=== PATIENT | male | born 1945 | race Caucasian/White ===

== ENCOUNTER 2017-12-21 14:55 | Inpatient (IN) | payer OTHER, MEDICARE ==
[~2017-12-21] VITALS: Ht 165.1 cm; Wt 123.0 kg
[2017-12-21 15:31] VITALS: BP 147/81; PULSE 94; RESP 20; TEMP 98.5; O2SAT 98
--- NOTE | 2017-12-21 16:04 | RADRPT ---
EXAM DATE/TIME: 12/21/2017 15:46 [facility] COMPARISON: No previous studies available for comparison. INDICATIONS : Short of breath, weakness, for medical clearance for possible spinal cord compression MEDICAL HISTORY : None. SURGICAL HISTORY : None. ENCOUNTER: Initial ACUITY: 1 day PAIN SCORE: 0/10 LOCATION: Bilateral chest FINDINGS: PA and lateral views of the chest demonstrate the lungs to be symmetrically aerated without evidence of mass, infiltrate or effusion. The cardiomediastinal contours are unremarkable. Osseous structure s are intact. CONCLUSION: 1. No acute cardiopulmonary disease. Wilfrido Pacheco MD on December 21, 2017 at 16:01 Board Certified Radiologist. This report was verified electronically.
[2017-12-21 16:36] LABS: BASOPHIL % 0.5 % (0.0-2.0); EOSINOPHIL # 0.1 TH/MM3 (0-0.4); EOSINOPHIL % 1.2 % (0.0-4.0); HEMATOCRIT 43.2 % (39.0-51.0); HEMOGLOBIN 15.3 GM/DL (13.0-17.0); LYMPH % 10.1 % (9.0-44.0); LYMPHOCYTE # 0.9 TH/MM3 (1.0-4.8); MEAN CELL VOLUME 90.9 FL (80.0-100.0); MEAN CORPUSCULAR HEMOGLOBIN 32.2 PG (27.0-34.0); MEAN CORPUSCULAR HGB CONC 35.4 % (32.0-36.0); MEAN PLATELET VOLUME 6.7 FL (7.0-11.0); MONO % 7.7 % (0.0-8.0); MONOCYTE # 0.7 TH/MM3 (0-0.9); NEUT % 80.5 % (16.0-70.0); PLATELET COUNT 130 TH/MM3 (150-450); RED BLOOD COUNT 4.76 MIL/MM3 (4.50-5.90); WHITE BLOOD COUNT 8.6 TH/MM3 (4.0-11.0)
[2017-12-21 16:50] LABS: INTERNATIONAL NORMALIZED RATIO 1.1 RATIO; PROTHROMBIN TIME - PATIENT 11.1 SEC (9.8-11.6)
[2017-12-21 16:55] LABS: ALBUMIN 3.9 GM/DL (3.4-5.0); ALT (GPT) 28 U/L (12-78); AST (GOT) 17 U/L (15-37); BICARBONATE 29.8 MEQ/L (21.0-32.0); BLOOD UREA NITROGEN 16 MG/DL (7-18); CALCIUM 8.7 MG/DL (8.5-10.1); CHLORIDE 105 MEQ/L (98-107); GLOMERULAR FILTRATION RATE 83 ML/MIN (>89); GLUCOSE,RANDOM 108 MG/DL (74-106); SODIUM (NA) 142 MEQ/L (136-145)
[2017-12-21 16:57] LABS: ALKALINE PHOSPHATASE 58 U/L (45-117); TOTAL BILIRUBIN ADULT 1.3 MG/DL (0.2-1.0); TOTAL PROTEIN 7.1 GM/DL (6.4-8.2)
[2017-12-21] MEDS ORDERED: ASPI1TAB57 PO (17:00)
[2017-12-21] MEDS ORDERED: IBUP1TAB7 PO (17:00)
[2017-12-21] MEDS ORDERED: HYDR-3516 PO (17:00)
[2017-12-21] MEDS ORDERED: METO1TAB42 PO (17:00)
[2017-12-21] MEDS ORDERED: SIMV40TA PO (17:00)
[2017-12-21] MEDS ORDERED: TAMS0.4C4 (17:00)
[2017-12-21] MEDS ORDERED: DEXA4TAB PO (17:00)
[2017-12-21] MEDS ORDERED: LISI-515 PO (17:00)
[2017-12-21 17:07] VITALS: BP 157/80; PULSE 98; RESP 17; O2SAT 94
--- NOTE | 2017-12-21 17:09 | PD ---
HPI Chief Complaint: Medical Clearance Time Seen by Provider: 16:49 Travel History International Travel<30 days: No Contact w/Intl Traveler<30days: No Traveled to known affect area: No History of Present Illness HPI 72-year-old male presents to the emergency department sent by oncologist, Dr. El Casillas for evaluation of a mass to his cervical spine. Patient states that for several months, he has had worsening unsteady gait, numbness and tingling to the bilateral upper extremities and inability to completely extend his fingers on his left hand. He states his s gait has become more more unsteady. He denies any falls. Patient has history of hypertension, A. fib. He saw Dr. Hicks today who put him on dexamethasone and hydrocodone for pain. He last took these at 2:30 PM. Patient states that Dr. Hicks contacted Dr. Skinner, who instructed the patient to come to the emergency department. The patient states he had MRI completed on December 14, 2017 at [facility]. Patient states his pain is currently minimal, radiating down both arms. Moderate severity. PFSH Past Medical History Atrial Fibrillation: Yes Cardiovascular Problems: Yes High Cholesterol: Yes Hypertension: Yes Tetanus Vaccination: Unknown Influenza Vaccination: Yes Past Surgical History Thoracic Surgery: Yes (LOWER BACK) Social History Alcohol Use: No Tobacco Use: No Substance Use: No Allergies-Medications (Allergen,Severity, Reaction): Coded Allergies: No Known Allergies (Unverified , 12/21/17) Reported Meds & Prescriptions Reported Meds & Active Scripts Active Reported Aspirin 81 (Aspirin) 81 Mg Tabdr 81 Mg PO DAILY Ibuprofen 800 Mg Tab 800 Mg PO Q8H PRN Tamsulosin (Tamsulosin HCl) 0.4 Mg Cap 0.4 Mg HS Simvastatin 40 Mg Tab 40 Mg PO HS Metoprolol Succinate ER 24 HR (Metoprolol Succinate) 25 Mg Tab 25 Mg PO DAILY Lisinopril 20 Mg Tab 20 Mg PO DAILY Dexamethasone 4 Mg Tab 4 Mg PO Q8HR Hydrocodone-Acetaminophen 5-325 mg Tab 1 Tab PO Q8HR PRN Review of Systems Except as stated in HPI: all other systems reviewed are Neg Physical Exam Narrative GENERAL: Well-developed well nourished male patient. Afebrile. SKIN: Warm and dry. HEAD: Normocephalic. Atraumatic. EYES: No scleral icterus. No injection or drainage. NECK: Supple, trachea midline. No JVD or lymphadenopathy. CARDIOVASCULAR: Regular rate and rhythm without murmurs, gallops, or rubs. RESPIRATORY: Breath sounds equal bilaterally. No accessory muscle use. Lung sounds are clear to auscultation GASTROINTESTINAL: Abdomen soft, non-tender, nondistended. MUSCULOSKELETAL: No cyanosis, or edema. Bilateral upper and lower extremity strength 5/5 BACK: Nontender without obvious deformity. No CVA tenderness. Data Data Last Documented VS Vital Signs Date Time Temp Pulse Resp B/P (MAP) Pulse Ox O2 Delivery O2 Flow Rate FiO2 12/21/17 17:07 98 17 157/80 (105) 94 Room Air 12/21/17 15:31 98.5 Orders Orders Complete Blood Count With Diff (12/21/17 15:35) Comprehensive Metabolic Panel (12/21/17 15:35) Chest, Pa & Lat (12/21/17 ) Coag Profile (12/21/17 15:35) Apply Cervical Collar (12/21/17 17:20) Dexamethasone Inj (Decadron Inj) (12/21/17 17:30) Ct Cerv Spine W/O Contrast (12/21/17 ) Cta Neck W Iv Contrast W 3d (12/21/17 ) Psa Free/Total (12/21/17 17:31) Prostate Specific Antigen (12/21/17 17:31) Ct Thorax/ Chest W Iv Contrast (12/21/17 ) Ct Abdomen W Iv Contrast(Rout) (12/21/17 ) Consult Radiation Oncology (12/21/17 ) Admit Order (Ed Use Only) (12/21/17 17:35) Labs Laboratory Tests Test 12/21/17 16:10 White Blood Count 8.6 TH/MM3 Red Blood Count 4.76 MIL/MM3 Hemoglobin 15.3 GM/DL Hematocrit 43.2 % Mean Corpuscular Volume 90.9 FL Mean Corpuscular Hemoglobin 32.2 PG Mean Corpuscular Hemoglobin Concent 35.4 % Red Cell Distribution Width 15.0 % Platelet Count 130 TH/MM3 Mean Platelet Volume 6.7 FL Neutrophils (%) (Auto) 80.5 % Lymphocytes (%) (Auto) 10.1 % Monocytes (%) (Auto) 7.7 % Eosinophils (%) (Auto) 1.2 % Basophils (%) (Auto) 0.5 % Neutrophils # (Auto) 7.0 TH/MM3 Lymphocytes # (Auto) 0.9 TH/MM3 Monocytes # (Auto) 0.7 TH/MM3 Eosinophils # (Auto) 0.1 TH/MM3 Basophils # (Auto) 0.0 TH/MM3 CBC Comment DIFF FINAL Differential Comment Prothrombin Time 11.1 SEC Prothromb Time International Ratio 1.1 RATIO Activated Partial Thromboplast Time 25.0 SEC Blood Urea Nitrogen 16 MG/DL Creatinine 0.90 MG/DL Random Glucose 108 MG/DL Total Protein 7.1 GM/DL Albumin 3.9 GM/DL Calcium Level 8.7 MG/DL Alkaline Phosphatase 58 U/L Aspartate Amino Transf (AST/SGOT) 17 U/L Alanine Aminotransferase (ALT/SGPT) 28 U/L Total Bilirubin 1.3 MG/DL Sodium Level 142 MEQ/L Potassium Level 3.6 MEQ/L Chloride Level 105 MEQ/L Carbon Dioxide Level 29.8 MEQ/L Anion Gap 7 MEQ/L Estimat Glomerular Filtration Rate 83 ML/MIN MDM Medical Decision Making Medical Screen Exam Complete: Yes Emergency Medical Condition: Yes Medical Record Reviewed: Yes Differential Diagnosis Mass versus metastatic disease versus medical clearance Narrative Course 72-year-old male presents to the emergency department for evaluation of a soft tissue mass on his cervical spine. I was able to pull up the MRI that was done. The results were soft tissue mass centered in the posterior elements of C7 with extension into the spinal canal from the dorsal and lateral aspect resulting in moderate cord compression. Findings are concerning for metastatic disease given history of prostate cancer. CBC shows no acute abnormality. CMP shows no acute abnormality. Coags are unremarkable. Chest x-ray shows no acute cardiopulmonary disease. 1710 - I spoke to Dr. Skinner who would like the patient admitted, the patient get Decadron 4 mg every 6 hours and a consult placed to Dr. Skinner. He states he will come see the patient. He would like the patient to have a cervical collar placed. 1720 - Dr. Skinner is in the ED, examining the patient. Hospitalist is paged for admission. Dr. Newell accepted admission. Diagnosis Primary Impression: Cervical spinal mass Admitting Information Admitting Physician Requests: Admit Amy Lua DEDRICK Dec 21, 2017 17:09
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
[2017-12-21] MEDS ORDERED: DEXAMETHASONE SOD PHOS 4 MG/ML VIAL IV PUSH ONE (17:30)
[2017-12-21] MEDS ORDERED: DIATRIZOATE MEGLUM/DIATRIZOATE SOD 9 ML CUP ONE (18:03)
[2017-12-21] MEDS ORDERED: NALOXONE HCL 0.4 MG/ML AMP IV PUSH PRN (18:30)
[2017-12-21] MEDS ORDERED: ONDANSETRON HCL 4 MG/2 ML VIAL IVP PRN (18:30)
[2017-12-21] MEDS ORDERED: ACETAMINOPHEN 325 MG TAB PO PRN (18:30)
[2017-12-21] MEDS ORDERED: BISACODYL 10 MG SUPP RECTAL PRN (18:30)
[2017-12-21] MEDS ORDERED: LACTULOSE SYRUP 20 GM/30 ML CUP PO PRN (18:30)
[2017-12-21] MEDS ORDERED: SENNOSIDES 8.6 MG TAB PO PRN (18:30)
[2017-12-21] MEDS ORDERED: MAGNESIUM HYDROXIDE SUSP 30 ML CUP PO PRN (18:30)
[2017-12-21] MEDS ORDERED: IOHEXOL 350 MG/ML 10 ML VIAL (for RAD DIAG) IVCONTRAST ONE (20:02)
--- NOTE | 2017-12-21 20:16 | RADRPT ---
EXAM DATE/TIME: 12/21/2017 19:29 [facility] COMPARISON: No previous studies available for comparison. INDICATIONS : Metastatic workup, history of prostate cancer. IV CONTRAST: 95 cc Omnipaque 350 (iohexol) IV ; Cumulative dose for multiple exams. ORAL CONTRAST: Prescribed oral contrast ingested. RADIATION DOSE: 16.38 CTDIvol (mGy) ; Combined studies - Thorax/Abdomen/Pelvis MEDICAL HISTORY : Carcinoma, prostate. Hypertension. Cardiovascular disease SURGICAL HISTORY : None. ENCOUNTER: Initial ACUITY: 1 day PAIN SCALE: 0/10 LOCATION: abdomen/pelvis TECHNIQUE: Volumetric scanning of the abdomen and pelvis was performed. Using automated exposure control and ad justment of the mA and/or kV according to patient size, radiation dose was kept as low as reasonably achievable to obtain optimal diagnostic quality images. DICOM format image data is available electro nically for review and comparison. FINDINGS: There is dependent atelectasis in the lungs. No significant abnormality in the liver, spleen, adrenal s or pancreas. Bilateral exophytic renal cysts and right renal parapelvic cysts measuring up to about 3.5 cm in diameter. There is no free fluid. No bowel obstruction. No adenopathy. CONCLUSION: 1. No acute findings abdomen pelvic CT. No evidence for metastatic disease to the abdomen or pelvis. Bilateral renal cysts. Previous cholecystectomy. Jaspreet Ramirez MD on December 21, 2017 at 20:11 Board Certified Radiologist. This report was verified electronically.
--- NOTE | 2017-12-21 20:19 | RADRPT ---
EXAM DATE/TIME: 12/21/2017 19:29 [facility] COMPARISON: No previous studies available for comparison. INDICATIONS : Metastatic workup, history of prostate cancer. IV CONTRAST: 95 cc Omnipaque 350 (iohexol) IV ; Cumulative dose for multiple exams. RADIATION DOSE: 16.38 CTDIvol (mGy) ; Combined studies - Thorax/Abdomen/Pelvis MEDICAL HISTORY : Carcinoma, prostate. Hypertension. Cardiovascular disease SURGICAL HISTORY : None. ENCOUNTER: Initial ACUITY: 1 day PAIN SCALE: 0/10 LOCATION: chest TECHNIQUE: Volumetric scanning of the chest was performed. Using automated exposure control and adjustment of t he mA and/or kV according to patient size, radiation dose was kept as low as reasonably achievable to obtain optimal diagnostic quality images. DICOM format image data is available electronically for review and comparison. Follow-up recommendations for detected pulmonary nodules are based at a minimum on nodule size and pa tient risk factors according to Fleischner Society Guidelines. FINDINGS: No lung consolidation. Minimal dependent atelectasis in lungs. There is no pleural pericardial effusi on. Moderate to severe coronary artery calcifications are noted. No hilar, mediastinal or axillary ad enopathy. No acute findings in the upper abdomen. Calcified gallstones in the gallbladder. No acute bony abnorm ality. CONCLUSION: 1. Negative for metastatic disease to the thorax. Jaspreet Ramirez MD on December 21, 2017 at 20:14 Board Certified Radiologist. This report was verified electronically.
--- NOTE | 2017-12-21 20:44 | RADRPT ---
EXAM DATE/TIME: 12/21/2017 19:29 [facility] COMPARISON: CT THORAX W CONTRAST, December 21, 2017, 19:29. INDICATIONS : Mass verses metastatic disease. RADIATION DOSE: CTDIvol (mGy) ; Reconstructed from previous dataset, no dose MEDICAL HISTORY : Carcinoma, prostate. Cardiovascular disease Hypertension. SURGICAL HISTORY : None. ENCOUNTER: Initial ACUITY: 1 day PAIN SCALE: 4/10 LOCATION: neck TECHNIQUE: Volumetric scanning of the cervical spine was performed. Multiplanar reconstructions in the sagittal, coronal and oblique axial planes were performed. Using automated exposure control and adjustment o f the mA and/or kV according to patient size, radiation dose was kept as low as reasonably achievable to obtain optimal diagnostic quality images. DICOM format image data is available electronically f or review and comparison. FINDINGS: There is lytic destruction of the proximal spinous process of C7 and left pedicle and partial destruc tion of the right pedicle. There is some extension of bone lysis into the C7 vertebral body on the le ft side. The mass of C7 also results in bony destruction through the superior facet and a portion of the left pedicle at T1 and also portions superior facet on the right at T1. There is associated soft tissue mass resulting in a severe canal stenosis at C6-7. No other bony destructive lesions are seen in the cervical spine. No other significant canal stenosis . CONCLUSION: 1. Aggressive bony destruction of C7 extending bilaterally into the pedicles and vertebral body and a lso extending inferiorly into the superior facet and pedicle of T1. Soft tissue mass extends in into the spinal canal and there is severe canal stenosis at C6-7. Moderate degenerative change in remainde r the cervical spine. Findings are suspicious for neoplasm, likely metastatic disease. Jaspreet Ramirez MD on December 21, 2017 at 20:35 Board Certified Radiologist. This report was verified electronically.
--- NOTE | 2017-12-21 20:48 | RADRPT ---
EXAM DATE/TIME: 12/21/2017 19:29 [facility] COMPARISON: No previous studies available for comparison. INDICATIONS : Metastatic workup, history of prostate cancer. IV CONTRAST: 95 cc Omnipaque 350 (iohexol) IV RADIATION DOSE: 11.79 CTDIvol (mGy) MEDICAL HISTORY : Carcinoma, prostate. Hypertension. Cardiovascular disease SURGICAL HISTORY : None. ENCOUNTER: Initial ACUITY: 1 day PAIN SCALE: 3/10 LOCATION: neck Elevated flow velocities and ICA/CCA ratios have been found to correlate with increased degrees of vessel stenosis, calculated as percentage of diameter relative to a normal segment of distal ICA/CCA. TECHNIQUE: Volumetric scanning was performed using a multirow detector CT scanner. The data was post processed with a variety of visualization algorithms including full-volume maximum intensity projection, multip lanar sliding thin-slab reformation, curved-planar reformation, and surface-rendering techniques. Us ing automated exposure control and adjustment of the mA and/or kV according to patient size, radiatio n dose was kept as low as reasonably achievable to obtain optimal diagnostic quality images. DICOM f ormat image data is available electronically for review and comparison. FINDINGS: There is mild atherosclerotic plaque in the common carotid internal carotid arteries bilaterally. No hemodynamically significant stenosis. Both vertebral arteries are patent with the left vertebral nathaniel ry dominance. CONCLUSION: 1. Mild atherosclerotic plaque in the carotid arteries without carotid stenosis. Bony destruction at C7 and T1. See cervical spine report. Jaspreet Ramirez MD on December 21, 2017 at 20:43 Board Certified Radiologist. This report was verified electronically.
[2017-12-21] MEDS: SODIUM CHLOR 0.9% 1000 ML INJ 1,000 ML IV SCH (21:40)
[2017-12-21 22:30] VITALS: BP 117/75; PULSE 100; RESP 18; TEMP 98.2; O2SAT 93
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
[2017-12-22] VITALS (10 sets, daily range): BP systolic 131–172; BP diastolic 70–92; PULSE 88–118; RESP 18–20; TEMP 97.3–98.3; O2SAT 93–96
[2017-12-22] MEDS: DEXAMETHASONE SOD PHOS 4 MG/ML VIAL IV PUSH SCH ×5 (00:16→23:12)
[2017-12-22] MEDS: METOPROLOL SUCCINATE 25 MG EXTENDED RELEASE TAB PO SCH ×2 (00:54→23:09)
[2017-12-22] MEDS: DOCUSATE SODIUM 50 MG/SENNA 8.6 MG TAB PO SCH ×3 (00:54→23:09)
[2017-12-22] MEDS: PRAVASTATIN SOD 80 MG TAB PO SCH ×2 (00:54→23:09)
[2017-12-22] MEDS: TAMSULOSIN HCL 0.4 MG CAP PO SCH ×3 (00:55→23:09)
[2017-12-22 05:32] LABS: AUTOMATED NEUTROPHIL # 9.4 TH/MM3 (1.8-7.7); BASOPHIL % 0.1 % (0.0-2.0); HEMATOCRIT 42.6 % (39.0-51.0); HEMOGLOBIN 15.3 GM/DL (13.0-17.0); LYMPHOCYTE # 0.6 TH/MM3 (1.0-4.8); MEAN CELL VOLUME 90.6 FL (80.0-100.0); MEAN CORPUSCULAR HEMOGLOBIN 32.5 PG (27.0-34.0); MEAN CORPUSCULAR HGB CONC 35.8 % (32.0-36.0); MEAN PLATELET VOLUME 6.8 FL (7.0-11.0); MONO % 0.8 % (0.0-8.0); MONOCYTE # 0.1 TH/MM3 (0-0.9); NEUT % 93.1 % (16.0-70.0); PLATELET COUNT 135 TH/MM3 (150-450); RED BLOOD COUNT 4.71 MIL/MM3 (4.50-5.90); RED CELL DISTRIBUTION WIDTH 15.1 % (11.6-17.2); WHITE BLOOD COUNT 10.1 TH/MM3 (4.0-11.0)
[2017-12-22 05:54] LABS: BICARBONATE 26.4 MEQ/L (21.0-32.0); CALCIUM 8.5 MG/DL (8.5-10.1); CREATININE 0.64 MG/DL (0.60-1.30)
[2017-12-22] MEDS: LISINOPRIL 20 MG TAB PO SCH (08:57)
[2017-12-22] MEDS ORDERED: METOPROLOL SUCCINATE 25 MG EXTENDED RELEASE TAB PO SCH (09:00)
--- NOTE | 2017-12-22 10:51 | MB ---
cc: Fly Mckinnon MD, DATE OF CONSULT: 12/21/2017 HISTORY OF PRESENT ILLNESS: This is a 72-year-old gentleman who gives a history of being treated for prostate cancer under Dr. Suarez's care at [facility] approximately 2 years ago. He, however, has not had a PSA performed in at least a year. Over the past 2-3 months, this gentleman has had pain radiating down both arms, worse on the left than the right. This has been associated with numbness in his hands and weakness, particularly in his left hand. He has very weak grasp on the left, although he is able to use the right. In the past week, he has become unstable on his feet. He is having difficulty ambulating. On the 12th of this month, he had an MRI of his cervical spine which showed a large mass at C6-C7. This is affecting the posterior elements and causing an apparent cord compression. This gentleman was seen by Dr. Casillas today in consultation. He referred him to the emergency room. Since being in the emergency room, he has been started on Decadron. He has also seen Dr. Alan, who has talked to him about surgery, possibly on Thursday morning and has ordered a metastatic workup, which includes a CTA of the neck. He has also ordered a CT of the chest, CT of the abdomen and pelvis. These have not yet been completed. He has had a chest x-ray which is otherwise unremarkable. His white count was 8600, hemoglobin 15.3, and platelet count was 130,000. His GFR is estimated at 83, with a normal BUN and creatinine. His alkaline phosphatase is normal at 58. PAST MEDICAL AND SURGICAL HISTORY INCLUDES: 1. History of atrial fibrillation. 2. Hypercholesterolemia. 3. Hypertension. 4. Surgery and pinning for a fractured left leg. 5. Low back surgeries 30 years ago. 6. Prostate cancer treated with radiation treatment approximately 2 years ago, as noted above. This gentleman denies diabetes. SOCIAL AND FAMILY HISTORY: This gentleman is accompanied by his son. He has 4 children. He lives with one of his sons, who is with him today. Unfortunately, his is . ALLERGIES: NONE KNOWN. MEDICATIONS: Have included aspirin, ibuprofen, tamsulosin, simvastatin, metoprolol, lisinopril and now dexamethasone and hydrocodone/acetaminophen. REVIEW OF SYSTEMS: This gentleman has the pain and the numbness and weakness as indicated above. He denies other cardiovascular, respiratory, eye, ear, nose or throat GI, , musculoskeletal, hematologic, neurologic, endocrine or other complaints. PHYSICAL EXAMINATION: GENERAL: Today, on exam, this gentleman is resting comfortably in bed, in no immediate distress. VITAL SIGNS: He was noted to be afebrile with respiratory rate of 17, a blood pressure of 157/80 and a pulse oximetry of 94% on room air. There was no jaundice. HEENT: His conjunctivae and eyelids were normal. NEUROLOGIC: Cranial nerve testing 2-12 was normal. LYMPHATIC: There is no adenopathy palpable in his head or neck. PULMONARY: His lung ty were clear without effusion. CARDIOVASCULAR: His heart sounds were normal, without murmurs, rubs or bruits. ABDOMEN: There are no abdominal masses, tenderness or hepatosplenomegaly. MUSCULOSKELETAL: His grasp is weak in his left hand. His proximal muscles, shoulder girdle muscles appear intact. His plantar flexion and dorsiflexion are normal. The remainder of the neurological exam, we leave to Dr. Alan. IMPRESSION: I reviewed this gentleman's MRI on the monitor from [facility]. He has a definite tumor at the C6-C7 level, which is extending outside of the bone as a major portion of the disease, but is also significantly affecting the posterior elements and causing a cord compression at this level. RECOMMENDATIONS AND DISCUSSION: I have reviewed the findings with this gentleman and his son, who was present. I have told him that I believe this gentleman needs a neurosurgical approach for diagnosis, but as well as decompression of the spinal canal. He will require postoperative radiation treatment and I have discussed delivering approximately 10 fractions for this as soon as he is adequately recovered from the surgery. If this is indeed metastatic prostate cancer, then he will be a candidate for hormonal therapy and Dr. Casillas will be in a position to coordinate that for him. We will continue to follow with him while he is in the hospital. If there are any changes in his situation or if for some reason he is not considered a surgical candidate, we would initiate radiation treatment as soon as possible. MD FABY Drake/HARRIET , 08:51 PM , 01:31 AM
--- NOTE | 2017-12-22 11:59 | HHI.NSPN ---
Note Status Status: Progress Note Interval History Diagnosis mass, with cord compression Interval History Mr. Falk is a 72-year-old male who was sent to the emergency department by his oncologist Dr. Hicks for evaluation of a mass to his cervical spine. which was found on an outpatient MRI. neurosurgical consultation. Apparently he first developed his symptoms in September, with progressive left side and weakness and inability to close his left middle finger. The symptoms progressed into his left shoulder feeling painful. He was treated by his primary care physician's office for arthritis in his neck as was found on an x- ray of the cervical spine. He had physical therapy but his symptoms did not improve despite physical therapy. he was given pain medication. His symptoms eventually progressed to occurring bilaterally. He had an outpatient MRI which showed a large mass with spinal cord compression ,and was referred to an oncologist for further evaluation and treatment. He had his first appointment with Dr. Hicks today and was sent to the ER due to his neurological deficits MRI He reports neck pain with left upper extremity pain. He has developed problems walking with loss of balance and sumbling. his legs are getting weak. He denies any fever, chills, chest pain, shortness of breath, nausea, vomiting, diarrhea, black or bloody stools. Cervical spine MRI shows aggressive bony destruction of C7 extending bilaterally into the pedicles and vertebral body and also extending inferiorly into the superior facet and pedicle of T1. Soft tissue mass extending into the spinal canal with severe canal stenosis at C6-7. Neurosurgical consultation was requested. 12/22. He is very painful. Metastatic workup in progress. CT and CTA were done Labs, Micro, & Vital Signs Results Date Time Temp Pulse Resp B/P (MAP) Pulse Ox O2 Delivery O2 Flow Rate FiO2 12/22/17 08:32 98.3 93 18 158/73 (101) 95 12/22/17 06:27 103 12/22/17 04:50 98.1 93 18 131/81 (98) 95 12/22/17 00:15 97.7 100 20 172/92 (118) 96 12/21/17 22:30 98.2 100 18 117/75 (89) 93 12/21/17 22:11 12/21/17 17:07 98 17 157/80 (105) 94 Room Air 12/21/17 17:01 17 12/21/17 15:31 98.5 94 20 147/81 (103) 98 Constitutional Vital Signs Date Time Temp Pulse Resp B/P (MAP) Pulse Ox O2 Delivery O2 Flow Rate FiO2 12/22/17 08:32 98.3 93 18 158/73 (101) 95 12/22/17 06:27 103 12/22/17 04:50 98.1 93 18 131/81 (98) 95 12/22/17 00:15 97.7 100 20 172/92 (118) 96 12/21/17 22:30 98.2 100 18 117/75 (89) 93 12/21/17 22:11 12/21/17 17:07 98 17 157/80 (105) 94 Room Air 12/21/17 17:01 17 12/21/17 15:31 98.5 94 20 147/81 (103) 98 Physical Exam Mr. Lai is alert, awake and oriented to time, place and person. Speech is fluent. Cranial nerve examination: pupils to be equal, round and reactive to light. Extra-ocular movements are intact. Facial motor and sensory function are normal and symmetrical. Gross hearing appears intact. Sternocleidomastoid and trapezius muscles are symmetrical. Other cranial nerves are intact. Neck is soft and supple with a decreased range of motion with pain. Muscle strength is 5/5 in both deltoids, biceps, 4+/5 right triceps with 4/5 on the left, 3/5 left wrist extension and hand with decreased fine motor movementsis normal in all muscle groups of lower extremities. Sensory examination is decreased in a left C7 dermatome, otherwise intact to light touch and pin prick in both lower extremities. Deep tendon reflexes are symmetrical in both upper and lower extremities. There is a bilateral plantar flexion response. Cerebellar examination is unremarkable, without deficits. Lungs are clear CARDIOVASCULAR: Regular rate and rhythm without murmurs, gallops, or rubs. RESPIRATORY: Clear to auscultation. Breath sounds equal bilaterally. No wheezes , rales, or rhonchi. GASTROINTESTINAL: Abdomen soft, non-tender, nondistended. No guarding. SKIN warm and dry Medications Current Medications Current Medications Dexamethasone Sodium Phosphate (Decadron Inj) 4 mg ONCE ONCE IV PUSH Last administered on 12/21/17at 17:57; Start 12/21/17 at 17:30; Stop 12/21/17 at 17:31 ; Status DC Diatrizoate Meglum/ Diatrizoate Sod ( Gastroview Liq) 18 ml STK-MED ONCE .ROUTE Last administered on 12/21/17at 18:04; Start 12/21/17 at 18:03; Stop at 18:04; Status DC Sodium Chloride 1,000 ml @ 50 mls/hr Q20H IV Last administered on 12/21/17at 21 :40; Start 12/21/17 at 18:26 Acetaminophen (Tylenol) 650 mg Q4H PRN PO TEMP > 100.4; Start 12/21/17 at 18:30 Ondansetron HCl (Zofran Inj) 4 mg Q6H PRN IVP NAUSEA OR VOMITING; Start at 18:30 Naloxone HCl (Narcan Inj) 0.4 mg UNSCH PRN IV PUSH SEE LABEL COMMENTS; Start at 18:30 Senna/Docusate Sodium (Sangeeta-Colace) 1 tab BID PO ; Start 12/21/17 at 21:00 Magnesium Hydroxide (Milk Of Magnesia Liq) 30 ml Q12H PRN PO Mild constipation ; Start 12/21/17 at 18:30 Sennosides (Senokot) 17.2 mg Q12H PRN PO Moderate constipation; Start 12/21/17 at 18:30 Bisacodyl (Dulcolax Supp) 10 mg DAILY PRN RECTAL SEVERE CONSITIPATION; Start at 18:30 Lactulose (Lactulose Liq) 30 ml DAILY PRN PO SEVERE CONSITIPATION; Start at 18:30 Dexamethasone Sodium Phosphate (Decadron Inj) 4 mg Q6HR IV PUSH Last administered on 12/22/17at 05:59; Start 12/22/17 at 00:00 Iohexol (Omnipaque 350 Inj) 95 ml STK-MED ONCE IVCONTRAST Last administered on 12/21/17at 20:04; Start 12/21/17 at 20:02; Stop 12/21/17 at 20:03; Status DC Acetaminophen/ Hydrocodone Bitart ([place] 5-325 Mg) 1 tab Q4H PRN PO pain 3-6; Start 12/21/17 at 23:45 Acetaminophen/ Hydrocodone Bitart ([place] 10-325 Mg) 1 tab Q4H PRN PO pain 7-10 ; Start 12/21/17 at 23:45 Lisinopril (Prinivil) 20 mg DAILY PO Last administered on 12/22/17at 08:57; Start 12/22/17 at 09:00 Metoprolol Succinate (Toprol Xl) 25 mg DAILY PO ; Start 12/22/17 at 09:00; Stop 12/22/17 at 09:00; Status DC Tamsulosin HCl (Flomax) 0.4 mg HS PO ; Start 12/21/17 at 23:45 Pravastatin Sodium (Pravachol) 80 mg HS PO Last administered on 12/22/17at 00:54 ; Start 12/21/17 at 23:45 Metoprolol Succinate (Toprol Xl) 25 mg HS PO Last administered on 12/22/17at 00: 54; Start 12/22/17 at 00:30 Vancomycin HCl 1000 mg/Sodium Chloride 250 ml @ 250 mls/hr ONCE ONCE IV ; Start 12/23/17 at 06:00; Stop 12/23/17 at 06:59 Chlorhexidine Gluconate (Hibiclens 4% Top Soln) 1 applic HS TOP ; Start at 21:00; Stop 12/24/17 at 21:01 Attending Statement I reviewed his CT, CTA and CT chest, abdomen, and pelvis Last 48 hours Impressions Neck CTA 12/21/17 0000 Signed Impressions: Service Date/Time: Thursday, December 21, 2017 19:29 - CONCLUSION: 1. Mild atherosclerotic plaque in the carotid arteries without carotid stenosis. Bony destruction at C7 and T1. See cervical spine report. Jaspreet Ramirez MD Chest X-Ray 12/21/17 0000 Signed Impressions: Service Date/Time: Thursday, December 21, 2017 15:46 - CONCLUSION: 1. No acute cardiopulmonary disease. Wilfrido Pacheco MD Chest CT 12/21/17 0000 Signed Impressions: Service Date/Time: Thursday, December 21, 2017 19:29 - CONCLUSION: 1. Negative for metastatic disease to the thorax. Jaspreet Ramirez MD Cervical Spine CT 12/21/17 0000 Signed Impressions: Service Date/Time: Thursday, December 21, 2017 19:29 - CONCLUSION: 1. Aggressive bony destruction of C7 extending bilaterally into the pedicles and vertebral body and also extending inferiorly into the superior facet and pedicle of T1. Soft tissue mass extends in into the spinal canal and there is severe canal stenosis at C6-7. Moderate degenerative change in remainder the cervical spine. Findings are suspicious for neoplasm, likely metastatic disease. Jaspreet Ramirez MD Abdomen/Pelvis CT 12/21/17 0000 Signed Impressions: Service Date/Time: Thursday, December 21, 2017 19:29 - CONCLUSION: 1. No acute findings abdomen pelvic CT. No evidence for metastatic disease to the abdomen or pelvis. Bilateral renal cysts. Previous cholecystectomy. Jaspreet Ramirez MD Continue checks in serial fasion. There is a large spinal mass with cord compression. he will need extensive surgery for decompression and stabilization of the cervicothoracci spine. I again discussed with him the details including the [id number] details of the surgical procedure, its indications, alternatives, risks, and potential complications. Risks and potential complications include, but are not limited to, infection, blood loss, CSF leak, partial or complete loss of sight in one or both eyes, paresis, paralysis, permanent pain or difficulty swallowing, loss of bowel or bladder function, complications from anesthesia, blood clot, stroke, myocardial infarction, or even . Vertebral arteries are patent CT chest, abdomen, pelvis for metastatic workup were negative Following his surgery he will need radiation therapy Atrial fibrillation diagnosed 3 years ago pt not on anticoagulation Continue home metoprolol XL 25 mg daily with first dose tonight Continuous cardiac telemetry to monitor for arrhythmia Hypertension-Continue lisinopril. -Monitor blood pressure trends and adjust meds as needed Control pain with narcotis Hyperlipidemia Continue statins Pulmonary. aggressive pulmonary toilette, nasotracheal suction, and breathing treatments with nebulizers. Renal. monitor closely urine output, BUN and creatinine Type and cross 2UPRBC Endocrine. Monitor serial Acu checks and SSI as needed in detail ID monitor for signs of infection Protonix for stress ulcer prophylaxis Efraín hose and SCD's for DVT prophylaxis Bert Skinner MD Dec 22, 2017 11:59
[2017-12-22] MEDS ORDERED: CHLORHEXIDINE GLUCONATE 2 % 1 PACK (2 CLOTHS) TOPICAL PRN (12:45)
[2017-12-22] MEDS ORDERED: METOPROLOL TARTRATE 25 MG TAB PO PRN (12:45)
[2017-12-22] MEDS ORDERED: POVIDONE IODINE 5% (ANTISEPSIS KIT) 4 APPLICATIONS EACH NARE PRN (12:45)
[2017-12-22] MEDS ORDERED: SODIUM CHLORID 0.9% 500 ML IV PRN (12:45)
[2017-12-22] MEDS ORDERED: LACTATED RINGER'S 1000 ML IV PRN (12:45)
[2017-12-22] MEDS: SODIUM CHLOR 0.9% 1000 ML INJ 1,000 ML IV SCH (14:26)
--- NOTE | 2017-12-22 15:31 | HHI.PR ---
Subjective Remarks Mr. Falk is a very pleasant 72-year-old male who was sent to the emergency department by his oncologist Dr. Hicks for evaluation of a mass to his cervical spine that was found on an outpatient MRI. Patient is admitted to [facility] for general medical management of his other chronic medical conditions with neurosurgical consultation. The patient is seen in his hospital room. He states that he first developed his symptoms in September and it started with his left side and weakness and inability to close his left middle finger. The symptoms progressed into his left shoulder feeling painful. He was treated by his primary care physician's office for arthritis in his neck as was found on an x-ray of the cervical spine. He had physical therapy but his symptoms never got better despite physical therapy and pain medication. His symptoms eventually progressed to occurring bilaterally. He had an outpatient MRI and was referred to an oncologist for further evaluation and treatment. He states he had his first appointment with Dr. Hicks today and was sent to the ER by him after he reviewed his cervical spine MRI Currently he is reporting pain at a level 3 out of 10 and reports adequate pain relief with medication given to at the hospital. He is awaiting cervical collar placement at the time of my visit. He denies any fever, chills, chest pain, shortness of breath, nausea, vomiting, diarrhea, black or bloody stools. Cervical spine CT shows aggressive bony destruction of C7 extending bilaterally into the pedicles and vertebral body and also extending inferiorly into the superior facet and pedicle of T1. Soft tissue mass extending into the spinal canal with severe canal stenosis at C6-7. Moderate degenerative change noted in remainder of the cervical spine. Findings are suspicious for neoplasm, likely metastatic disease. The patient has been seen and evaluated by Dr. Skinner of neurosurgery. The patient states that Dr. Skinner told him he would do surgery and also refer him to radiation oncology. Dr. Skinner has consulted radiation oncology and we are leaving the patient n.p.o. for the time being until we have further clarification. 12-22 patient is scheduled to go for surgery tomorrow with Dr. Skinner Regarding Cervical mass No shortness of breath no chest pain no nausea vomiting Objective Vitals Vital Signs Date Time Temp Pulse Resp B/P (MAP) Pulse Ox O2 Delivery O2 Flow Rate FiO2 12/22/17 12:28 97.7 98 18 138/72 (94) 95 12/22/17 08:32 98.3 93 18 158/73 (101) 95 12/22/17 06:27 103 12/22/17 04:50 98.1 93 18 131/81 (98) 95 12/22/17 00:15 97.7 100 20 172/92 (118) 96 12/21/17 22:30 98.2 100 18 117/75 (89) 93 12/21/17 22:11 12/21/17 17:07 98 17 157/80 (105) 94 Room Air 12/21/17 17:01 17 12/21/17 15:31 98.5 94 20 147/81 (103) 98 I/O 12/21/17 12/21/17 12/21/17 12/22/17 12/22/17 12/22/17 07:00 15:00 23:00 07:00 15:00 23:00 Intake Total 0 ml Output Total 600 ml Balance -600 ml Intake Oral 0 ml Output Urine Total 600 ml # Bowel Movements 0 Result Diagram: 12/22/17 0500 12/22/17 0500 Other Results Laboratory Tests Test 12/21/17 16:10 12/22/17 05:00 White Blood Count 8.6 TH/MM3 10.1 TH/MM3 Red Blood Count 4.76 MIL/MM3 4.71 MIL/MM3 Hemoglobin 15.3 GM/DL 15.3 GM/DL Hematocrit 43.2 % 42.6 % Mean Corpuscular Volume 90.9 FL 90.6 FL Mean Corpuscular Hemoglobin 32.2 PG 32.5 PG Mean Corpuscular Hemoglobin Concent 35.4 % 35.8 % Red Cell Distribution Width 15.0 % 15.1 % Platelet Count 130 TH/MM3 135 TH/MM3 Mean Platelet Volume 6.7 FL 6.8 FL Neutrophils (%) (Auto) 80.5 % 93.1 % Lymphocytes (%) (Auto) 10.1 % 6.0 % Monocytes (%) (Auto) 7.7 % 0.8 % Eosinophils (%) (Auto) 1.2 % 0.0 % Basophils (%) (Auto) 0.5 % 0.1 % Neutrophils # (Auto) 7.0 TH/MM3 9.4 TH/MM3 Lymphocytes # (Auto) 0.9 TH/MM3 0.6 TH/MM3 Monocytes # (Auto) 0.7 TH/MM3 0.1 TH/MM3 Eosinophils # (Auto) 0.1 TH/MM3 0.0 TH/MM3 Basophils # (Auto) 0.0 TH/MM3 0.0 TH/MM3 CBC Comment DIFF FINAL DIFF FINAL Differential Comment Prothrombin Time 11.1 SEC Prothromb Time International Ratio 1.1 RATIO Activated Partial Thromboplast Time 25.0 SEC Blood Urea Nitrogen 16 MG/DL 14 MG/DL Creatinine 0.90 MG/DL 0.64 MG/DL Random Glucose 108 MG/DL 132 MG/DL Total Protein 7.1 GM/DL Albumin 3.9 GM/DL Calcium Level 8.7 MG/DL 8.5 MG/DL Alkaline Phosphatase 58 U/L Aspartate Amino Transf (AST/SGOT) 17 U/L Alanine Aminotransferase (ALT/SGPT) 28 U/L Total Bilirubin 1.3 MG/DL Sodium Level 142 MEQ/L 141 MEQ/L Potassium Level 3.6 MEQ/L 3.8 MEQ/L Chloride Level 105 MEQ/L 107 MEQ/L Carbon Dioxide Level 29.8 MEQ/L 26.4 MEQ/L Anion Gap 7 MEQ/L 8 MEQ/L Estimat Glomerular Filtration Rate 83 ML/MIN 123 ML/MIN Prostate Specific Antigen 0.38 NG/ML Imaging Last Impressions Neck CTA 12/21/17 0000 Signed Impressions: Service Date/Time: Thursday, December 21, 2017 19:29 - CONCLUSION: 1. Mild atherosclerotic plaque in the carotid arteries without carotid stenosis. Bony destruction at C7 and T1. See cervical spine report. Jaspreet Ramirez MD Chest X-Ray 12/21/17 0000 Signed Impressions: Service Date/Time: Thursday, December 21, 2017 15:46 - CONCLUSION: 1. No acute cardiopulmonary disease. Wilfrido Pacheco MD Chest CT 12/21/17 0000 Signed Impressions: Service Date/Time: Thursday, December 21, 2017 19:29 - CONCLUSION: 1. Negative for metastatic disease to the thorax. Jaspreet Ramirez MD Cervical Spine CT 12/21/17 0000 Signed Impressions: Service Date/Time: Thursday, December 21, 2017 19:29 - CONCLUSION: 1. Aggressive bony destruction of C7 extending bilaterally into the pedicles and vertebral body and also extending inferiorly into the superior facet and pedicle of T1. Soft tissue mass extends in into the spinal canal and there is severe canal stenosis at C6-7. Moderate degenerative change in remainder the cervical spine. Findings are suspicious for neoplasm, likely metastatic disease. Jaspreet Ramirez MD Abdomen/Pelvis CT 12/21/17 0000 Signed Impressions: Service Date/Time: Thursday, December 21, 2017 19:29 - CONCLUSION: 1. No acute findings abdomen pelvic CT. No evidence for metastatic disease to the abdomen or pelvis. Bilateral renal cysts. Previous cholecystectomy. Jaspreet Ramirez MD Objective Remarks CONSTITUTIONAL: This is a overweight elderly male patient, in no apparent distress; telling jokes and laughing. INTEGUMENTARY: No rashes. Cool and dry. HEAD: Atraumatic. Normocephalic. EYES: No scleral icterus. No injection or drainage. Pupils equal round reactive light accommodation extractor muscles intact ENT: Nose without bleeding, purulent drainage. Tongue is midline oral mucous is moist NECK: Trachea midline. No JVD or lymphadenopathy. Supple CARDIOVASCULAR: Regular rate and rhythm without murmurs, gallops, or rubs. S1- S2 no S3-S4 RESPIRATORY: Clear to auscultation. Breath sounds equal bilaterally. No wheezes , rales, or rhonchi. GASTROINTESTINAL: Abdomen soft, non-tender, nondistended. No guarding. Obese MUSCULOSKELETAL: Extremities without clubbing, cyanosis. No calf tenderness. NEUROLOGICAL: Awake and alert. Normal speech. 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 Insight and judgment is good Mood and behaviors appropriate Medications and IVs Current Medications Dexamethasone Sodium Phosphate (Decadron Inj) 4 mg ONCE ONCE IV PUSH Last administered on 12/21/17at 17:57; Start 12/21/17 at 17:30; Stop 12/21/17 at 17:31 ; Status DC Diatrizoate Meglum/ Diatrizoate Sod ( Gastroview Liq) 18 ml STK-MED ONCE .ROUTE Last administered on 12/21/17at 18:04; Start 12/21/17 at 18:03; Stop at 18:04; Status DC Sodium Chloride 1,000 ml @ 50 mls/hr Q20H IV Last administered on 12/21/17at 21 :40; Start 12/21/17 at 18:26 Acetaminophen (Tylenol) 650 mg Q4H PRN PO TEMP > 100.4; Start 12/21/17 at 18:30 Ondansetron HCl (Zofran Inj) 4 mg Q6H PRN IVP NAUSEA OR VOMITING; Start at 18:30 Naloxone HCl (Narcan Inj) 0.4 mg UNSCH PRN IV PUSH SEE LABEL COMMENTS; Start at 18:30 Senna/Docusate Sodium (Sangeeta-Colace) 1 tab BID PO ; Start 12/21/17 at 21:00 Magnesium Hydroxide (Milk Of Magnesia Liq) 30 ml Q12H PRN PO Mild constipation ; Start 12/21/17 at 18:30 Sennosides (Senokot) 17.2 mg Q12H PRN PO Moderate constipation; Start 12/21/17 at 18:30 Bisacodyl (Dulcolax Supp) 10 mg DAILY PRN RECTAL SEVERE CONSITIPATION; Start at 18:30 Lactulose (Lactulose Liq) 30 ml DAILY PRN PO SEVERE CONSITIPATION; Start at 18:30 Dexamethasone Sodium Phosphate (Decadron Inj) 4 mg Q6HR IV PUSH Last administered on 12/22/17at 14:10; Start 12/22/17 at 00:00 Iohexol (Omnipaque 350 Inj) 95 ml STK-MED ONCE IVCONTRAST Last administered on 12/21/17at 20:04; Start 12/21/17 at 20:02; Stop 12/21/17 at 20:03; Status DC Acetaminophen/ Hydrocodone Bitart ([place] 5-325 Mg) 1 tab Q4H PRN PO pain 3-6; Start 12/21/17 at 23:45 Acetaminophen/ Hydrocodone Bitart ([place] 10-325 Mg) 1 tab Q4H PRN PO pain 7-10 ; Start 12/21/17 at 23:45 Lisinopril (Prinivil) 20 mg DAILY PO Last administered on 12/22/17at 08:57; Start 12/22/17 at 09:00 Metoprolol Succinate (Toprol Xl) 25 mg DAILY PO ; Start 12/22/17 at 09:00; Stop 12/22/17 at 09:00; Status DC Tamsulosin HCl (Flomax) 0.4 mg HS PO ; Start 12/21/17 at 23:45 Pravastatin Sodium (Pravachol) 80 mg HS PO Last administered on 12/22/17at 00:54 ; Start 12/21/17 at 23:45 Metoprolol Succinate (Toprol Xl) 25 mg HS PO Last administered on 12/22/17at 00: 54; Start 12/22/17 at 00:30 Vancomycin HCl 1000 mg/Sodium Chloride 250 ml @ 250 mls/hr ONCE ONCE IV ; Start 12/23/17 at 06:00; Stop 12/23/17 at 06:59 Chlorhexidine Gluconate (Hibiclens 4% Top Soln) 1 applic HS TOP ; Start at 21:00; Stop 12/24/17 at 21:01 Lactated Ringer's 1,000 ml @ 30 mls/hr Q24H PRN IV SEE LABEL COMMENTS; Start at 12:45; Stop 12/25/17 at 12:44 Sodium Chloride 500 ml @ 30 mls/hr [id number] PRN IV SEE LABEL COMMENTS; Start at 12:45; Stop 12/25/17 at 12:44 Metoprolol Tartrate (Lopressor) 25 mg MOLD PREPARER PRN PO SEE LABEL COMMENTS; Start 12/22/17 at 12:45; Stop 12/25/17 at 12:44 Povidone Iodine (Betadine 5% Antisepsis Kit) 1 applic MOLD PREPARER PRN EACH NARE SEE LABEL COMMENTS; Start 12/22/17 at 12:45; Stop 12/25/17 at 12:44 Chlorhexidine Gluconate (Chlorhexidine 2% Cloth) 3 pack MOLD PREPARER PRN TOPICAL SEE LABEL COMMENTS; Start 12/22/17 at 12:45; Stop 12/25/17 at 12:44 A/P Problem List: (1) Cervical spinal mass ICD Code: G95.9 - Disease of spinal cord, unspecified Status: Acute Assessment and Plan Mr. Falk is a very pleasant 72-year-old male who was sent to the emergency department by his oncologist Dr. Hicks for evaluation of a mass to his cervical spine that was found on an outpatient MRI. Patient is admitted to [facility] for general medical management of his other chronic medical conditions with neurosurgical consultation. 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 Skinner -Decadron 4 mg IV every 6 hours -Hydrocodone/APAP 5/325 mg 1 tab every 4 hours as needed for pain 3-6 and hydrocodone/APAP 10/325 mg 1 tab every 4 hours as needed for pain 7-10 -We will keep n.p.o. for now until further clarification on surgical plan from Dr. Skinner -Discussed with nursing [facility] as ordered by Dr. Skinner -To go for surgery on December [address] Skinner Atrial fibrillation diagnosed 3 years ago pt not on anticoagulation -Continue home metoprolol XL 25 mg daily with first dose tonight -Continuous cardiac telemetry to monitor for arrhythmia Hypertension -Continue home lisinopril -Monitor blood pressure trends and adjust treatments as needed -Control pain adequately Hyperlipidemia -Continue statin therapy DVT prophylaxis -SCDs/TEDS Discharge Planning Pending neurosurgical and oncology clearance Gennaro Cisneros DO Dec 22, 2017 15:31
[2017-12-22] MEDS: CHLORHEXIDINE GLUCONATE 4% SOLN 120 ML BTL TOP SCH (21:00)
[2017-12-23] VITALS: BP 132/84; PULSE 121; RESP 20; TEMP 98.6; O2SAT 95
[2017-12-23 04:00] VITALS: BP_SYST 117; BP_SYST 195; BP_DIAS 57; BP_DIAS 86; PULSE 109; PULSE 58; RESP 18; RESP 20; TEMP 98; TEMP 98.3; O2SAT 94; O2SAT 97
[2017-12-23] MEDS: DEXAMETHASONE SOD PHOS 4 MG/ML VIAL IV PUSH SCH ×3 (05:17→21:30)
[2017-12-23 05:21] LABS: PSA, FREE <0.1 ng/mL
[2017-12-23] MEDS: SODIUM CHLOR 0.9% 1000 ML INJ 1,000 ML IV SCH (05:32)
[2017-12-23] MEDS ORDERED: VANCOMYCIN INJ 1,000 MG in SODIUM CHLOR 0.9% 250 ML INJ 250 ML IV ONE (06:00)
[2017-12-23 07:56] LABS: AUTOMATED NEUTROPHIL # 15.3 TH/MM3 (1.8-7.7); HEMATOCRIT 42.3 % (39.0-51.0); HEMOGLOBIN 14.9 GM/DL (13.0-17.0); LYMPH % 4.3 % (9.0-44.0); LYMPHOCYTE # 0.7 TH/MM3 (1.0-4.8); MEAN CELL VOLUME 91.9 FL (80.0-100.0); MEAN CORPUSCULAR HEMOGLOBIN 32.4 PG (27.0-34.0); MEAN CORPUSCULAR HGB CONC 35.3 % (32.0-36.0); MONOCYTE # 0.5 TH/MM3 (0-0.9); NEUT % 92.7 % (16.0-70.0); PLATELET COUNT 148 TH/MM3 (150-450); RED CELL DISTRIBUTION WIDTH 15.3 % (11.6-17.2); WHITE BLOOD COUNT 16.5 TH/MM3 (4.0-11.0)
[2017-12-23 08:19] VITALS: BP 166/80; PULSE 101; RESP 18; TEMP 97.4; O2SAT 97
[2017-12-23] MEDS: DOCUSATE SODIUM 50 MG/SENNA 8.6 MG TAB PO SCH ×2 (08:22→21:00)
[2017-12-23] MEDS: LISINOPRIL 20 MG TAB PO SCH (08:22)
[2017-12-23 08:39] LABS: ALBUMIN 3.6 GM/DL (3.4-5.0); BICARBONATE 28.6 MEQ/L (21.0-32.0); BLOOD UREA NITROGEN 16 MG/DL (7-18); CALCIUM 8.4 MG/DL (8.5-10.1); CHLORIDE 107 MEQ/L (98-107); CREATININE 0.73 MG/DL (0.60-1.30); GLOMERULAR FILTRATION RATE 105 ML/MIN (>89); GLUCOSE,RANDOM 129 MG/DL (74-106); MAGNESIUM 1.9 MG/DL (1.5-2.5); SODIUM (NA) 143 MEQ/L (136-145)
[2017-12-23 08:40] LABS: ALT (GPT) 27 U/L (12-78); AST (GOT) 21 U/L (15-37); PHOSPHORUS 2.8 MG/DL (2.5-4.9)
[2017-12-23 08:49] LABS: ALKALINE PHOSPHATASE 54 U/L (45-117); FREE T4 1.05 NG/DL (0.76-1.46); TOTAL PROTEIN 6.8 GM/DL (6.4-8.2)
[2017-12-23] MEDS ORDERED: THROMBIN (TOPICAL) 5,000 UNIT VIAL ONE (09:02)
[2017-12-23] MEDS ORDERED: GENTAMICIN SULFATE 80 MG/2 ML VIAL ONE (09:02)
[2017-12-23] MEDS ORDERED: GELFOAM SIZE 100 ONE (09:02)
[2017-12-23] MEDS ORDERED: ceFAZolin 2 GM PREMIX 50 ML ONE (09:06)
[2017-12-23] MEDS ORDERED: GELATIN POWDER 1 GM PACKET ONE (09:07)
[2017-12-23] MEDS ORDERED: PNEUMOCOCCAL POLYVALENT INJ 25 MCG/0.5 ML SYR IM ONE (10:00)
[2017-12-23] MEDS ORDERED: PROPOFOL 1000 MG/100 ML INJ 100 ML ONE ×2 (10:27→11:22)
[2017-12-23 10:50] VITALS: O2SAT 98
[2017-12-23] MEDS ORDERED: PHENYLEPHRINE HCL 10 MG/ML VIAL ONE (10:50)
[2017-12-23] MEDS ORDERED: PROPOFOL 200 MG/20 ML AMP IV ONE (12:00)
[2017-12-23] MEDS ORDERED: LACTATED RINGER'S 1000 ML INJ 2,000 ML IV ONE (12:00)
[2017-12-23] MEDS ORDERED: DEXAMETHASONE SOD PHOS 4 MG/ML VIAL IV ONE (12:00)
[2017-12-23] MEDS ORDERED: SODIUM CHLORID 0.9% 500 ML INJ 500 ML IV ONE (12:00)
[2017-12-23] MEDS ORDERED: METOPROLOL TARTRATE 5 MG/5 ML VIAL IV PUSH ONE (12:00)
[2017-12-23] MEDS ORDERED: PHENYLEPHRINE HCL 10 MG/ML VIAL IV ONE (12:00)
[2017-12-23] MEDS ORDERED: PHENYLEPH/NS 1000 MCG/10 ML SYR IV ONE (12:00)
[2017-12-23] MEDS ORDERED: SODIUM CHLOR 0.9% 250 ML INJ 250 ML IV ONE (12:00)
[2017-12-23] MEDS ORDERED: ePHEDrine/NS 25 MG/5 ML SYRINGE IV ONE (12:00)
[2017-12-23] MEDS ORDERED: ROCURONIUM INJ 50 MG/5 ML SYRINGE IV PUSH ONE (12:00)
[2017-12-23] MEDS ORDERED: LIDOCAINE HCL 1% PF 5 ML SYRINGE OTHER ONE (12:00)
[2017-12-23] MEDS ORDERED: ONDANSETRON HCL 4 MG/2 ML VIAL IV ONE (12:00)
[2017-12-23] MEDS ORDERED: TERBUTALINE INJ 1 MG/ML AMP SQ PRN (12:15)
[2017-12-23] MEDS ORDERED: PROPOFOL 1000 MG/100 ML IV PRN (12:15)
[2017-12-23] MEDS ORDERED: PHENYLEPHRINE 40 MG in D5W 500 ML IV PRN (12:15)
[2017-12-23] MEDS ORDERED: SUFentanil INJ 250 MCG/5 ML AMP ONE (14:50)
--- NOTE | 2017-12-23 17:18 | RADRPT ---
EXAM DATE/TIME: 12/23/2017 13:51 [place] COMPARISON: No previous studies available for comparison. INDICATIONS : Level localization for C6-7 laminectomy. MEDICAL HISTORY : Carcinoma, prostate. Hypertension. Cardiovascular disease. SURGICAL HISTORY : None. ENCOUNTER: Subsequent ACUITY: 1 day PAIN SCORE: Non-responsive. LOCATION: Cervical. FINDINGS: A single lateral view of the cervical spine was performed. The vertebral bodies are in normal alignm ent down to C7 without evidence of subluxation. Prevertebral soft tissues are normal in thickness. CONCLUSION: I can visualize down to C3. C6 and C7 cannot be visualized by C-arm. Gennaro Galindo MD FACR on December 23, 2017 at 17:15 Board Certified Radiologist. This report was verified electronically.
[2017-12-23] MEDS ORDERED: DO NOT ADM ANY ANTICOAGULANT DRUGS PRN (17:19)
--- NOTE | 2017-12-23 17:24 | PD.OP ---
Operative Report Date of Surgery: Dec 23, 2017 Preoperative Diagnosis: C7 mass with spinal cord compression Postoperative Diagnosis: C7 mass with spinal cord compression. Frozen section consitent with lymphoma Procedure: C7 bilateral laminectomy, resection of epidural tumor Anesthesia: general Surgeon: Bert Skinner Audit Consultant(s): Angelica Prince Operation and Findings: INDICATIONS FOR THE PROCEDURE Mr Falk is a 72 year-old male who presented with intractable neck pain, left upper extremity weakness, and clinical evidence of cervical myelopathy and clinical evidence of upper extremity radiculopathy. He was found to have a large cervical epidural mass with spinal cord compression and invasion of the bony structures A surgical decompression was indicated. The [id number] details of the procedure, indications, alternatives, risks and potential complications were fully discussed with the patient. The patient fully understood. All The questions were answered. No guarantees were given. The patient voiced requesting the procedure and provided informed consents. The patient was offered the alternative of delaying the procedure and continuing with nonsurgical management. DETAILS OF THE SURGICAL PROCEDURE After the induction of general anesthesia, endotracheal intubation was performed. Electrodes were placed for electrophysiological monitoring of te somatosensorial evoked potentials, EMG, and motor evoked potentials prior to the intubation and kept thorough the procedure. A Malone catheter, bilateral BRIDGET hose, and sequential compression devices were placed and kept throughout the procedure. The patient was carefully log-rolled to the prone position on a 3080 table. All pressure points were carefully padded with eggcrate mattress. The patient was positioned in a prone position with rigid fixation of the head using the Hoffman adaptor. All pressure points were carefully padded with eggcrate mattress. The eyes were tapped shut after ointment was applied by the anesthesiologist to prevent corneal abrasion. A Chas hugger was placed over the expossed lower body to maintain control of the core body temperature. The electrophysiological team placed the needles and electrodes in their proper location and baseline SSEP's and motor evoked potentials were registered. The posterior cervical region was prepped and draped in the usual sterile fashion. A localizing X-ray was performed with the C-arm and the fracture was localized. A medial incision was outlined from the spinous process of C6 down to T1 Surgical Approach A midline skin incision was made with a #10 blade. Dissection was carried out through the posterior cervical fascia with a Bovie. The spinous process of C6, C7, and T1 were exposed and a subperiosteal dissection was performed over the spinous process, lamina lateral masses of C2 and C5. Bilateral self retaining retractors were placed on incision. Surgical decompression The operative microscope was draped in the usual sterile fashion and brought to the field. The rest of the surgical procedure was performed using microdissection technique with the exception of the closure. Under the operative microscope, the laminas at C7 and the spinous processes were carefully drilled using the TPS drill with a 5m cutting lexii.There was obvious neoplasm, invading the bones and surrounding tissue. The ligamentum Flavum was carefully removed with a 3mm thin foot plate Kerrison. This was carefully resected using microdissection technique, microdisectors and a mictobipolar forceps Although the initial intention was to decompress the spinal cord and stabilize the spine, a proper radiologicval visualization for safe placement of the instrumentation was not possible, and in case of necessity a potential instrumentation will be staged The incision was irrigated with basic ortho solution Completion of the Procedure The incision was thoroughly irrigated with several liters of antibiotic solution. A seven mm Ray-Theodore drain was left on the epidural space and was then externalized through a separate stab incision. The incision was then closed in layers. 0 Vicryl with interrupted sutures were used to close the thoracolumbar fascia. The superficial fascia was closed with 0 Vicryl sutures. Three-0 Vicryl was used to close the subcutaneous tissue. The skin was closed with 4-0 running subcuticular Vicryl. Dermabond was applied to the skin. The drain was secured 3-0 nylon. At the end of the procedure the sponges, needles, and instrument counts were all correct. Estimated blood loss was 100 cc's. No complications occurred. The patient received prophylactic antibiotics. The patient was then extubated and transferred to the recovery room in stable condition. The entire procedure was performed using electrophysiological monitor of the electromyogram, evoked potential and sphincters. No intraoperative changes were detected. Bert Skinner MD Dec 23, 2017 17:24
[2017-12-23] MEDS ORDERED: MIDAZOLAM HCL 2 MG/2 ML VIAL ONE (17:42)
[2017-12-23 18:10] LABS: HEMOGLOBIN A1C 4.8 % (4.3-6.0)
--- NOTE | 2017-12-23 18:34 | HHI.PR ---
Subjective Remarks 72-year-old male with mass at level of C7. His family has been at bedside during his trip to the operating room. I was able to track patient down in the PACU, he is doing well awake moving all extremities. Initial surgery results positive. He had some atrial fibrillation with RVR following surgery. Objective Vitals Vital Signs Date Time Temp Pulse Resp B/P (MAP) Pulse Ox O2 Delivery O2 Flow Rate FiO2 12/23/17 13:00 85 12 119/59 (79) 98 12/23/17 12:45 97.6 90 14 129/80 (96) 99 Mechanical Ventilator 12/23/17 12:30 83 14 126/56 (79) 99 Mechanical Ventilator 12/23/17 12:15 83 14 133/74 (93) 99 Mechanical Ventilator 12/23/17 12:15 50 12/23/17 12:00 94 14 137/82 (100) 99 Mechanical Ventilator 12/23/17 11:45 88 14 137/60 (85) 99 Mechanical Ventilator 12/23/17 11:30 83 14 126/60 (82) 99 Mechanical Ventilator 12/23/17 11:15 85 14 135/76 (95) 99 Mechanical Ventilator 12/23/17 11:00 89 14 150/84 (106) 99 Mechanical Ventilator 12/23/17 10:54 86 131/74 12/23/17 10:50 98 50 12/23/17 10:50 90 92/46 12/23/17 10:45 120 14 126/77 (93) 99 Mechanical Ventilator 12/23/17 10:42 97.5 89 12 134/63 (86) 98 Mechanical Ventilator Automatic Cuff 12/23/17 10:42 50 12/23/17 08:19 97.4 101 18 166/80 (108) 97 12/23/17 04:00 98.3 109 20 195/86 (122) 97 12/23/17 04:00 98.0 58 18 117/57 (77) 94 12/23/17 00:00 98.6 121 20 132/84 (100) 95 12/22/17 20:00 98.0 118 20 133/70 (91) 93 12/22/17 18:52 97.3 98 18 134/71 (92) 94 I/O 12/22/17 12/22/17 12/22/17 12/23/17 12/23/1712/23/18 07:00 15:00 23:00 07:00 15:00 23:00 Intake Total 0 ml 960 ml 2200 ml Output Total 600 ml 1000 ml 2700 ml 800 ml Balance -600 ml -40 ml -2700 ml 1400 ml Intake Oral 0 ml 960 ml Other 2200 ml Output Urine Total 600 ml 1000 ml 2700 ml Estimated Blood Loss 300 ml Other 500 ml # Bowel Movements 0 Result Diagram: 12/23/1771712/23/17717 Objective Remarks GENERAL: Obese SKIN: Warm and dry. HEAD: Normocephalic. EYES: No scleral icterus. No injection or drainage. NECK: Supple, trachea midline. No JVD or lymphadenopathy. CARDIOVASCULAR: Irregularly irregular, heart rate 108 RESPIRATORY: Breath sounds equal bilaterally. No accessory muscle use. GASTROINTESTINAL: Abdomen soft, non-tender, nondistended. EXTREMITIES: No cyanosis, or edema. NEUROLOGICAL: Awake, alert, and oriented x 3. Non-focal. 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 Skinner performed extraction of mass today Patient will be recovering in the ICU overnight Family was informed that patient is doing well, awake, moving all extremities, talking, not in any distress and pain Atrial fibrillation with RVR Diagnosed 3 years ago, patient is not on anticoagulants Resume home dose of metoprolol XL 25 mg daily We will give single dose of digoxin IV to stabilize rhythm Telemetry in the ICU overnight Hypertension Resume home lisinopril DVT prophylaxis SCD, resume anticoagulants when Chris Angeles MD Dec 23, 2017 18:34
[2017-12-23] MEDS ORDERED: DIGOXIN 0.5 MG/2 ML VIAL IV PUSH ONE (18:45)
[2017-12-23] MEDS ORDERED: METOPROLOL SUCCINATE 25 MG EXTENDED RELEASE TAB PO ONE (18:45)
[2017-12-23] MEDS ORDERED: NS + KCL 20 MEQ INJ 1,000 ML IV SCH (19:28)
[2017-12-23] MEDS ORDERED: ACETAMINOPHEN 325 MG TAB PO PRN (19:30)
[2017-12-23] MEDS ORDERED: MORPHINE SULFATE 4 MG/ML INJ IV PUSH PRN (19:30)
[2017-12-23] MEDS ORDERED: MORPHINE SULFATE 2 MG/ML INJ IV PRN (19:45)
--- NOTE | 2017-12-23 20:45 | EKG ---
Date Performed: 12/22/2017 Time Performed: 15:50:24 PTAGE: 72 years EKG: ATRIAL FIBRILLATION WITH RAPID VENTRICULAR RESPONSE LEFT ANTERIOR FASCICULAR BLOCK ABNORMAL ECG NO PREVIOUS TRACING DOCTOR: John Petersen Interpretating Date/Time 12/23/2017 20:43:56
[2017-12-23] MEDS: PRAVASTATIN SOD 80 MG TAB PO SCH (21:00)
[2017-12-23] MEDS: CHLORHEXIDINE GLUCONATE 4% SOLN 120 ML BTL TOP SCH (21:00)
[2017-12-23] MEDS: TAMSULOSIN HCL 0.4 MG CAP PO SCH (21:00)
[2017-12-23] MEDS: METOPROLOL SUCCINATE 25 MG EXTENDED RELEASE TAB PO SCH (21:00)
[2017-12-23] MEDS ORDERED: DEXAMETHASONE SOD PHOS 4 MG/ML VIAL IV PUSH SCH (21:00)
[2017-12-23] MEDS: ceFAZolin 2 GM PREMIX 50 ML IV SCH (22:00)
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
[2017-12-24] MEDS: DEXAMETHASONE SOD PHOS 4 MG/ML VIAL IV PUSH SCH ×3 (03:00→14:36)
[2017-12-24] MEDS: ceFAZolin 2 GM PREMIX 50 ML IV SCH (05:33)
[2017-12-24 06:08] LABS: HEMATOCRIT 37.2 % (39.0-51.0); HEMOGLOBIN 12.9 GM/DL (13.0-17.0); MEAN CELL VOLUME 91.9 FL (80.0-100.0); MEAN CORPUSCULAR HGB CONC 34.8 % (32.0-36.0); MEAN PLATELET VOLUME 7.2 FL (7.0-11.0); PLATELET COUNT 139 TH/MM3 (150-450); RED BLOOD COUNT 4.05 MIL/MM3 (4.50-5.90); RED CELL DISTRIBUTION WIDTH 15.6 % (11.6-17.2); WHITE BLOOD COUNT 14.9 TH/MM3 (4.0-11.0)
[2017-12-24 06:33] LABS: CALCIUM 7.9 MG/DL (8.5-10.1); CREATININE 0.66 MG/DL (0.60-1.30)
[2017-12-24] MEDS: ACETAMINOPHEN/HYDROcodone 325 MG/10 MG TAB PO PRN ×2 (07:38→21:55)
[2017-12-24] MEDS: SODIUM CHLOR 0.9% 1000 ML INJ 1,000 ML IV SCH (09:00)
[2017-12-24] MEDS: LISINOPRIL 20 MG TAB PO SCH (09:00)
[2017-12-24] MEDS: DOCUSATE SODIUM 50 MG/SENNA 8.6 MG TAB PO SCH ×2 (09:00→21:49)
[2017-12-24] MEDS: PANTOPRAZOLE SODIUM 40 MG VIAL IVP SCH (09:30)
[2017-12-24 12:00] VITALS: BP 169/90; PULSE 101; RESP 19; TEMP 97.8; O2SAT 93
[2017-12-24] MEDS ORDERED: DIGOXIN 0.5 MG/2 ML VIAL IV PUSH ONE (13:30)
[2017-12-24] MEDS ORDERED: CEFAZOLIN IV SCH ×3 (14:00→14:15)
[2017-12-24] MEDS ORDERED: SODIUM CHLORIDE 0.9% IV SCH (14:00)
[2017-12-24] MEDS ORDERED: DEXTROSE 5% IV SCH ×2 (14:15)
[2017-12-24] MEDS ORDERED: WATER IV SCH ×2 (14:15)
--- NOTE | 2017-12-24 15:33 | PD.ONC.PN ---
Subjective Subjective Remarks Afebrile Patient reports his pain is overall well controlled Moving all extremities with no problems Objective Data Date Time Temp Pulse Resp B/P (MAP) Pulse Ox O2 Delivery O2 Flow Rate FiO2 12/24/17 12:00 96 18 131/76 (94) 95 Room Air 12/24/17 08:00 97.7 94 16 95 Room Air 110/70 (83) 12/24/17 05:00 90 18 106/56 (73) 95 Room Air 12/24/17 04:03 90 16 95/50 (65) 95 Room Air 12/24/17 03:00 92 18 129/60 (83) 96 Room Air 12/24/17 02:00 83 14 106/56 (73) 94 Room Air 12/24/17 01:00 89 12 104/55 (71) 95 Room Air 12/24/17 00:00 85 16 107/57 (74) 96 Nasal Cannula 2 12/23/17 23:00 84 14 105/57 (73) 98 Nasal Cannula 2 12/23/17 22:00 88 18 94/58 (70) 95 Nasal Cannula 2 12/23/17 21:00 90 14 105/57 (73) 98 Nasal Cannula 2 12/23/17 20:00 100 14 94/58 (70) 98 Nasal Cannula 2 12/23/17 19:00 107 14 105/53 (70) 100 Nasal Cannula 2 12/23/17 18:45 97 14 117/57 (77) 99 Nasal Cannula 2 12/23/17 18:30 108 14 135/57 (83) 100 Nasal Cannula 2 12/23/17 18:15 109 14 107/59 (75) 99 Nasal Cannula 2 12/23/17 18:00 104 14 109/58 (75) 99 Nasal Cannula 2 12/23/17 17:45 101 14 142/66 (91) 100 Nasal Cannula 2 12/23/17 17:30 97 14 137/67 (90) 99 Nasal Cannula 2 12/23/17 17:22 97.9 110 14 135/64 (87) 99 Nasal Cannula 2 12/24/17 12/24/17 12/24/17 07:00 15:00 23:00 Intake Total 1062 ml 460 ml Output Total 900 ml 280 ml Balance 162 ml 180 ml Result Diagram: 12/24/1752612/24/17526 Laboratory Results Laboratory Tests Test 12/23/17 15:56 12/23/17 16:14 12/24/17 05:27 Blood Gas Puncture Site DRAWN IN OR Blood Gas Patient Temperature 98.6 Blood Gas HCO3 24 mmol/L Blood Gas Base Excess -0.3 mmol/L Blood Gas Oxygen Saturation 97 % Arterial Blood pH 7.43 Arterial Blood Partial Pressure CO2 36 mmHg Arterial Blood Partial Pressure O2 166 mmHg Arterial Blood Oxygen Content 20.1 Vol % Arterial Blood Carboxyhemoglobin 1.3 % Arterial Blood Methemoglobin 1.4 % Blood Gas Hemoglobin 14.6 G/DL Oxygen Delivery Device VENTILATOR Blood Gas Ventilator Setting OR Blood Gas Inspired Oxygen 60 % White Blood Count 14.9 TH/MM3 Red Blood Count 4.05 MIL/MM3 Hemoglobin 12.9 GM/DL Hematocrit 37.2 % Mean Corpuscular Volume 91.9 FL Mean Corpuscular Hemoglobin 32.0 PG Mean Corpuscular Hemoglobin Concent 34.8 % Red Cell Distribution Width 15.6 % Platelet Count 139 TH/MM3 Mean Platelet Volume 7.2 FL Blood Urea Nitrogen 15 MG/DL Creatinine 0.66 MG/DL Random Glucose 124 MG/DL Calcium Level 7.9 MG/DL Sodium Level 143 MEQ/L Potassium Level 4.2 MEQ/L Chloride Level 109 MEQ/L Carbon Dioxide Level 27.0 MEQ/L Anion Gap 7 MEQ/L Estimat Glomerular Filtration Rate 118 ML/MIN Administered Medications Medications (Trade) Dose Ordered Sig/Patty Route PRN Reason Start Time Stop Time Status Last Admin Dose Admin Sodium Chloride 1,000 ml @ 50 mls/hr Q20H IV 12/21/17 18:26 12/24/17 09:00 Senna/Docusate Sodium (Sangeeta-Colace) 1 tab BID PO 12/21/17 21:00 12/24/17 09:00 Acetaminophen/ Hydrocodone Bitart ([place] 10-325 Mg) 1 tab Q4H PRN PO pain 7-10 12/21/17 23:45 12/24/17 07:38 Lisinopril (Prinivil) 20 mg DAILY PO 12/22/17 09:00 12/24/17 09:00 Tamsulosin HCl (Flomax) 0.4 mg HS PO 12/21/17 23:45 12/22/17 23:09 Pravastatin Sodium (Pravachol) 80 mg HS PO 12/21/17 23:45 12/22/17 23:09 Metoprolol Succinate (Toprol Xl) 25 mg HS PO 12/22/17 00:30 12/22/17 23:09 Chlorhexidine Gluconate (Hibiclens 4% Top Soln) 1 applic HS TOP 12/22/17 21:00 12/24/17 21:01 12/22/17 21:00 Lactated Ringer's 1,000 ml @ 30 mls/hr Q24H PRN IV SEE LABEL COMMENTS 12/22/17 12:45 12/25/17 12:44 12/23/17 09:10 Phenylephrine HCl 40 mg/Dextrose 500 ml @ 30 mls/hr TITRATE PRN IV Blood Pressure Management 12/23/17 12:15 12/23/17 10:54 Potassium Chloride/Sodium Chloride 1,000 ml @ 100 mls/hr Q10H IV 12/23/17 19:28 12/24/17 05:26 Pantoprazole Sodium (Protonix Inj) 40 mg DAILY IVP 12/24/17 09:00 12/24/17 09:30 Morphine Sulfate (Morphine Inj) 2 mg Q2H PRN IV PAIN 1-6 12/23/17 19:45 12/24/17 10:21 Dexamethasone Sodium Phosphate (Decadron Inj) 4 mg Q6H IV PUSH 12/24/17 03:00 12/24/17 14:36 Objective Remarks GENERAL: Obese older male resting in bed no obvious distress SKIN: Warm and dry. HEAD: Normocephalic. EYES: No injection or drainage. NECK: Supple, trachea midline. Wearing [place] collar CARDIOVASCULAR: Regular rate and rhythm without murmurs. RESPIRATORY: Clear anteriorly. Breathing unlabored at rest. GASTROINTESTINAL: Abdomen soft, non-tender, nondistended. EXTREMITIES: No cyanosis, or edema. MUSCULOSKELETAL: Adequate muscle tone. NEUROLOGICAL: Moving all extremities. No obvious focal deficit. Assessment/Plan Problem List: (1) Adenocarcinoma of prostate ICD Codes: C61 - Malignant neoplasm of prostate Plan: --Await pathology from spinal surgery Hx/Workup: Patient was originally diagnosed several years ago and was treated with radiation treatments. He did not receive any adjuvant chemotherapy at the time of diagnosis. (2) Cervical spinal mass ICD Codes: G95.9 - Disease of spinal cord, unspecified Status: Acute Plan: -- Most recently we have been seeing him for a mass involving the C7 spine. -- An MRI showed that this extended bilaterally into the pedicles and vertebral body and inferiorly into the superior facet and pedicle of T1, causing a moderate amount of cord compression. -- Patient underwent C7 bilateral laminectomy with resection of the epidural tumor on 12/[address] Skinner -- On Decadron IV 4mg Q6H. Assessment Patient with history of adenocarcinoma of the prostate admitted with cord compression due to a mass on C7 Plan 1. Await pathology 2. Check LDH on today's labs 3. Decrease Decadron to 4 mg p.o. twice daily 4. Supportive care Lyndsay Jeter Dec 24, 2017 15:33
[2017-12-24 16:00] VITALS: BP 177/89; PULSE 120; RESP 20; TEMP 98.7; O2SAT 95
--- NOTE | 2017-12-24 16:00 | HHI.PR ---
Subjective Remarks Patient is eating today with son at bedside. His pain is adequately controlled. He has had no symptoms from his mildly elevated heart rate due to atrial fibrillation. Objective Vitals Vital Signs Date Time Temp Pulse Resp B/P (MAP) Pulse Ox O2 Delivery O2 Flow Rate FiO2 12/24/17 12:00 97.8 101 19 169/90 (116) 93 12/24/17 12:00 96 18 131/76 (94) 95 Room Air 12/24/17 08:00 97.7 94 16 95 Room Air 110/70 (83) 12/24/17 05:00 90 18 106/56 (73) 95 Room Air 12/24/17 04:03 90 16 95/50 (65) 95 Room Air 12/24/17 03:00 92 18 129/60 (83) 96 Room Air 12/24/17 02:00 83 14 106/56 (73) 94 Room Air 12/24/17 01:00 89 12 104/55 (71) 95 Room Air 12/24/17 00:00 85 16 107/57 (74) 96 Nasal Cannula 2 12/23/17 23:00 84 14 105/57 (73) 98 Nasal Cannula 2 12/23/17 22:00 88 18 94/58 (70) 95 Nasal Cannula 2 12/23/17 21:00 90 14 105/57 (73) 98 Nasal Cannula 2 12/23/17 20:00 100 14 94/58 (70) 98 Nasal Cannula 2 12/23/17 19:00 107 14 105/53 (70) 100 Nasal Cannula 2 12/23/17 18:45 97 14 117/57 (77) 99 Nasal Cannula 2 12/23/17 18:30 108 14 135/57 (83) 100 Nasal Cannula 2 12/23/17 18:15 109 14 107/59 (75) 99 Nasal Cannula 2 12/23/17 18:00 104 14 109/58 (75) 99 Nasal Cannula 2 12/23/17 17:45 101 14 142/66 (91) 100 Nasal Cannula 2 12/23/17 17:30 97 14 137/67 (90) 99 Nasal Cannula 2 12/23/17 17:22 97.9 110 14 135/64 (87) 99 Nasal Cannula 2 I/O 12/23/17 12/23/17 12/23/17 12/24/17 12/24/1718 07:00 15:00 23:00 07:00 15:00 23:00 Intake Total 2200 ml 1062 ml 460 ml Output Total 2700 ml 870 ml 900 ml 280 ml Balance -2700 ml 1330 ml 162 ml 180 ml Intake Oral 460 ml IV Total 1062 ml Other 2200 ml Output Urine Total 2700 ml 850 ml 250 ml Drainage Total 70 ml 50 ml 30 ml Estimated Blood Loss 300 ml Other 500 ml Result Diagram: 12/24/1752612/24/17526 Objective Remarks GENERAL: Obese SKIN: Warm and dry. HEAD: Normocephalic. EYES: No scleral icterus. No injection or drainage. NECK: Supple, trachea midline. No JVD or lymphadenopathy. CARDIOVASCULAR: Irregularly irregular, heart rate 108 RESPIRATORY: Breath sounds equal bilaterally. No accessory muscle use. GASTROINTESTINAL: Abdomen soft, non-tender, nondistended. EXTREMITIES: No cyanosis, or edema. NEUROLOGICAL: Awake, alert, and oriented x 3. Non-focal. 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 Skinner performed extraction of mass 12/23/17 Patient tolerated the procedure well, mass was sent for pathology Family was informed that patient is doing well, awake, moving all extremities, talking, not in any distress and pain Appreciate neurosurgery consult Appreciate oncology consult Atrial fibrillation with RVR Diagnosed 3 years ago, patient is not on anticoagulants Continue home dose of metoprolol XL 25 mg daily IV digoxin used as supplemental for rhythm stabilization We will begin anticoagulants tomorrow Hypertension Resume home lisinopril DVT prophylaxis SCD hose for now, begin anticoagulants tomorrow for atrial fibrillation Chris Vargas MD Dec 24, 2017 16:00
--- NOTE | 2017-12-24 17:17 | HHI.NSPN ---
(Olivia Malagon) Note Status Status: Progress Note (Olivia Malagon) Interval History Interval History Mr. Falk s/p C7 bilateral laminectomy, resection of epidural tumor Dec 23, 2017 for C7 mass with spinal cord compression. His Frozen section consistent with lymphoma 12/24: doing well, surgical pain controlled. reports upper extremities symptoms with improvement today. (Olivia Malagon) Labs, Micro, & Vital Signs Results Date Time Temp Pulse Resp B/P (MAP) Pulse Ox O2 Delivery O2 Flow Rate FiO2 12/24/17 12:00 97.8 101 19 169/90 (116) 93 12/24/17 12:00 96 18 131/76 (94) 95 Room Air 12/24/17 08:00 97.7 94 16 95 Room Air 110/70 (83) 12/24/17 05:00 90 18 106/56 (73) 95 Room Air 12/24/17 04:03 90 16 95/50 (65) 95 Room Air 12/24/17 03:00 92 18 129/60 (83) 96 Room Air 12/24/17 02:00 83 14 106/56 (73) 94 Room Air 12/24/17 01:00 89 12 104/55 (71) 95 Room Air 12/24/17 00:00 85 16 107/57 (74) 96 Nasal Cannula 2 12/23/17 23:00 84 14 105/57 (73) 98 Nasal Cannula 2 12/23/17 22:00 88 18 94/58 (70) 95 Nasal Cannula 2 12/23/17 21:00 90 14 105/57 (73) 98 Nasal Cannula 2 12/23/17 20:00 100 14 94/58 (70) 98 Nasal Cannula 2 12/23/17 19:00 107 14 105/53 (70) 100 Nasal Cannula 2 12/23/17 18:45 97 14 117/57 (77) 99 Nasal Cannula 2 12/23/17 18:30 108 14 135/57 (83) 100 Nasal Cannula 2 12/23/17 18:15 109 14 107/59 (75) 99 Nasal Cannula 2 12/23/17 18:00 104 14 109/58 (75) 99 Nasal Cannula 2 12/23/17 17:45 101 14 142/66 (91) 100 Nasal Cannula 2 12/23/17 17:30 97 14 137/67 (90) 99 Nasal Cannula 2 12/23/17 17:22 97.9 110 14 135/64 (87) 99 Nasal Cannula 2 12/25/17 07:00 Intake Total 460 ml Output Total 280 ml Balance 180 ml Constitutional Vital Signs Date Time Temp Pulse Resp B/P (MAP) Pulse Ox O2 Delivery O2 Flow Rate FiO2 12/24/17 12:00 97.8 101 19 169/90 (116) 93 12/24/17 12:00 96 18 131/76 (94) 95 Room Air 12/24/17 08:00 97.7 94 16 95 Room Air 110/70 (83) 12/24/17 05:00 90 18 106/56 (73) 95 Room Air 12/24/17 04:03 90 16 95/50 (65) 95 Room Air 12/24/17 03:00 92 18 129/60 (83) 96 Room Air 12/24/17 02:00 83 14 106/56 (73) 94 Room Air 12/24/17 01:00 89 12 104/55 (71) 95 Room Air 12/24/17 00:00 85 16 107/57 (74) 96 Nasal Cannula 2 12/23/17 23:00 84 14 105/57 (73) 98 Nasal Cannula 2 12/23/17 22:00 88 18 94/58 (70) 95 Nasal Cannula 2 12/23/17 21:00 90 14 105/57 (73) 98 Nasal Cannula 2 12/23/17 20:00 100 14 94/58 (70) 98 Nasal Cannula 2 12/23/17 19:00 107 14 105/53 (70) 100 Nasal Cannula 2 12/23/17 18:45 97 14 117/57 (77) 99 Nasal Cannula 2 12/23/17 18:30 108 14 135/57 (83) 100 Nasal Cannula 2 12/23/17 18:15 109 14 107/59 (75) 99 Nasal Cannula 2 12/23/17 18:00 104 14 109/58 (75) 99 Nasal Cannula 2 12/23/17 17:45 101 14 142/66 (91) 100 Nasal Cannula 2 12/23/17 17:30 97 14 137/67 (90) 99 Nasal Cannula 2 12/23/17 17:22 97.9 110 14 135/64 (87) 99 Nasal Cannula 2 12/25/17 07:00 Intake Total 460 ml Output Total 280 ml Balance 180 ml (Olivia Malagon) Review of Systems Constitutional: DENIES: Fever, Chills Respiratory: DENIES: Apneas Cardiovascular: DENIES: Chest pain Gastrointestinal: DENIES: Vomiting Musculoskeletal: COMPLAINS OF: Neck pain Neurologic: COMPLAINS OF: Localized weakness, Paresthesias, DENIES: Headache, Seizures, Speech Problems (Olivia Malagon) Physical Exam Mr. Lai is alert, awake and oriented to time, place and person. Speech is fluent. Cranial nerve examination: pupils to be equal, round and reactive to light. Extra-ocular movements are intact. Facial motor and sensory function are normal and symmetrical. Gross hearing appears intact. Sternocleidomastoid and trapezius muscles are symmetrical. Other cranial nerves are intact. Neck immobilized by [place]ka collar Wound with dressing in place. JES drain in place. Muscle strength is 5/5 in both deltoids, biceps, 4+/5 right triceps with 4/5 on the left, 3/5 left wrist extension and hand with decreased fine motor movementsis normal in all muscle groups of lower extremities. Sensory examination is decreased in a left C7 dermatome, otherwise intact to light touch and pin prick in both lower extremities. Deep tendon reflexes are symmetrical in both upper and lower extremities. There is a bilateral plantar flexion response. Cerebellar examination is unremarkable, without deficits. Lungs are clear CARDIOVASCULAR: Regular rate and rhythm without murmurs, gallops, or rubs. RESPIRATORY: Clear to auscultation. Breath sounds equal bilaterally. No wheezes , rales, or rhonchi. GASTROINTESTINAL: Abdomen soft, non-tender, nondistended. No guarding. SKIN warm and dry (Olivia Malagon) Medications Current Medications Current Medications Medications (Trade) Dose Ordered Sig/Patty Route PRN Reason Start Time Stop Time Status Last Admin Dose Admin Acetaminophen (Tylenol) 650 mg Q4H PRN PO TEMP > 100.4 12/21/17 18:30 Ondansetron HCl (Zofran Inj) 4 mg Q6H PRN IVP NAUSEA OR VOMITING 12/21/17 18:30 Naloxone HCl (Narcan Inj) 0.4 mg UNSCH PRN IV PUSH SEE LABEL COMMENTS 12/21/17 18:30 Senna/Docusate Sodium (Sangeeta-Colace) 1 tab BID PO 12/21/17 21:00 12/24/17 09:00 Magnesium Hydroxide (Milk Of Magnesia Liq) 30 ml Q12H PRN PO Mild constipation 12/21/17 18:30 Sennosides (Senokot) 17.2 mg Q12H PRN PO Moderate constipation 12/21/17 18:30 Bisacodyl (Dulcolax Supp) 10 mg DAILY PRN RECTAL SEVERE CONSITIPATION 12/21/17 18:30 Lactulose (Lactulose Liq) 30 ml DAILY PRN PO SEVERE CONSITIPATION 12/21/17 18:30 Acetaminophen/ Hydrocodone Bitart ([place] 5-325 Mg) 1 tab Q4H PRN PO pain 3-6 12/21/17 23:45 Acetaminophen/ Hydrocodone Bitart ([place] 10-325 Mg) 1 tab Q4H PRN PO pain 7-10 12/21/17 23:45 12/24/17 07:38 Lisinopril (Prinivil) 20 mg DAILY PO 12/22/17 09:00 12/24/17 09:00 Tamsulosin HCl (Flomax) 0.4 mg HS PO 12/21/17 23:45 12/22/17 23:09 Pravastatin Sodium (Pravachol) 80 mg HS PO 12/21/17 23:45 12/22/17 23:09 Metoprolol Succinate (Toprol Xl) 25 mg HS PO 12/22/17 00:30 12/22/17 23:09 Chlorhexidine Gluconate (Hibiclens 4% Top Soln) 1 applic HS TOP 12/22/17 21:00 12/24/17 21:01 12/22/17 21:00 Sodium Chloride 500 ml @ 30 mls/hr [id number] PRN IV SEE LABEL COMMENTS 12/22/17 12:45 12/25/17 12:44 Metoprolol Tartrate (Lopressor) 25 mg PRECIPITATOR OPERATOR PRN PO SEE LABEL COMMENTS 12/22/17 12:45 12/25/17 12:44 Povidone Iodine (Betadine 5% Antisepsis Kit) 1 applic PRECIPITATOR OPERATOR PRN EACH NARE SEE LABEL COMMENTS 12/22/17 12:45 12/25/17 12:44 Chlorhexidine Gluconate (Chlorhexidine 2% Cloth) 3 pack PRECIPITATOR OPERATOR PRN TOPICAL SEE LABEL COMMENTS 12/22/17 12:45 12/25/17 12:44 Propofol 100 ml @ 3.81 mls/hr TITRATE PRN IV SEDATION 12/23/17 12:15 Phenylephrine HCl 40 mg/Dextrose 500 ml @ 30 mls/hr TITRATE PRN IV Blood Pressure Management 12/23/17 12:15 12/23/17 10:54 Terbutaline Sulfate (Brethine Inj) 1 mg UNSCH PRN SQ FOR EXTRAVASATION PROTOCOL 12/23/17 12:15 Miscellaneous Information ALL NURSING DEPARTME... UNSCH PRN .XX SEE LABEL COMMENTS 12/23/17 17:19 12/24/17 17:18 Pantoprazole Sodium (Protonix Inj) 40 mg DAILY IVP 12/24/17 09:00 12/24/17 09:30 Morphine Sulfate (Morphine Inj) 2 mg Q2H PRN IV PAIN 1-6 12/23/17 19:45 12/24/17 10:21 Morphine Sulfate (Morphine Inj) 4 mg Q2H PRN IV PUSH PAIN SCALE 7 TO 10 12/23/17 19:30 Acetaminophen (Tylenol) 650 mg Q4H PRN PO TEMPERATURE > 101.5 F 12/23/17 19:30 Dexamethasone Sodium Phosphate (Decadron Inj) 4 mg Q6H IV PUSH 12/24/17 03:00 12/24/17 14:36 (Olivia Malagon) Medical Decision Making MDM Remarks Mr. Falk s/p C7 bilateral laminectomy, resection of epidural tumor Dec 23, 2017 for C7 mass with spinal cord compression. His Frozen section consistent with lymphoma (Olivia Malagon) Plan Plan Remarks cont JES drain today, dc tomorrow cont [place] collar ok to start therapy rehab efforts f/u final pathology (Olivia Malagon) Attending Statement The exam, history, and the medical decision-making described in the above note were completed with the assistance of the mid-level provider. I reviewed and agree with the findings presented. I attest that I had a [id number] encounter with the patient on the same day, and personally performed and documented my assessment and findings in the medical record. (Bert Skinner MD) Olivia Malagon Dec 24, 2017 17:17 Bert Skinner MD Dec 27, 2017 13:51
[2017-12-24 20:00] VITALS: BP 109/83; PULSE 106; RESP 22; TEMP 97.6; O2SAT 97
[2017-12-24] MEDS: CHLORHEXIDINE GLUCONATE 4% SOLN 120 ML BTL TOP SCH (21:00)
[2017-12-24] MEDS: METOPROLOL SUCCINATE 25 MG EXTENDED RELEASE TAB PO SCH ×2 (21:00→21:50)
[2017-12-24] MEDS: TAMSULOSIN HCL 0.4 MG CAP PO SCH (21:49)
[2017-12-24] MEDS: PRAVASTATIN SOD 80 MG TAB PO SCH (21:49)
[2017-12-24] MEDS: DEXAMETHASONE 4 MG TAB PO SCH (21:49)
[2017-12-25] VITALS: BP 166/85; PULSE 98; RESP 19; TEMP 97.5; O2SAT 94
[2017-12-25 04:00] VITALS: BP 152/80; PULSE 96; RESP 18; TEMP 97.9; O2SAT 93
[2017-12-25 08:00] VITALS: BP 201/91; PULSE 100; RESP 18; TEMP 97.3; O2SAT 98
[2017-12-25] MEDS: LISINOPRIL 20 MG TAB PO SCH (08:34)
[2017-12-25] MEDS: DOCUSATE SODIUM 50 MG/SENNA 8.6 MG TAB PO SCH ×2 (08:35→21:00)
[2017-12-25] MEDS: DEXAMETHASONE 4 MG TAB PO SCH ×2 (08:35→21:52)
[2017-12-25] MEDS: PANTOPRAZOLE SODIUM 40 MG VIAL IVP SCH (08:35)
[2017-12-25 12:00] VITALS: BP_SYST 141; BP_SYST 168; BP_DIAS 77; BP_DIAS 97; PULSE 100; PULSE 91; RESP 18; TEMP 97.8; TEMP 98.1; O2SAT 96; O2SAT 97
[2017-12-25 16:00] VITALS: BP 178/99; PULSE 98; RESP 18; TEMP 98.2; O2SAT 95
--- NOTE | 2017-12-25 18:23 | HHI.NSPN ---
History Interval History Patient status post laminectomy. Frozen section compatible with lymphoma. Patient reports doing well and offers no complaints Exam Results Vital Signs Date Time Temp Pulse Resp B/P (MAP) Pulse Ox O2 Delivery O2 Flow Rate FiO2 12/25/17 16:00 98.2 98 18 178/99 (125) 95 12/24/17 12:00 Room Air 12/24/17 00:00 2 12/23/17 12:15 50 Intake and Output 12/25/17 12/25/17 12/26/17 08:00 16:00 00:00 Output Total 1165 ml Balance -1165 ml Physical Examination Patient is alert and awake. Sitting up in chair. [place] J collar Moves all extremities well Dressing dry and intact Medical Decision Making Impression and Plan Patient doing well postop. Reports being able to ambulate to the bathroom without problems. We will increase mobilization. May need oncology consult Dilip Raymundo MD Dec 25, 2017 18:23
--- NOTE | 2017-12-25 18:27 | PD.ONC.PN ---
Subjective Subjective Remarks neck collar in place denies any pain s/p C7 bilateral laminectomy, resection of epidural tumor Objective Data Date Time Temp Pulse Resp B/P (MAP) Pulse Ox O2 Delivery O2 Flow Rate FiO2 12/25/17 16:00 98.2 98 18 178/99 (125) 95 12/25/17 12:00 98.1 100 18 168/97 (120) 97 12/25/17 08:00 97.3 100 18 201/91 (127) 98 Arterial Line 12/25/17 04:00 97.9 96 18 152/80 (104) 93 12/25/17 00:00 97.5 98 19 166/85 (112) 94 12/24/17 20:00 97.6 106 22 109/83 (92) 97 12/25/17 12/25/17 12/25/17 06:59 14:59 22:59 Output Total 1100 ml 65 ml Balance -1100 ml -65 ml Result Diagram: 12/24/1752612/24/17526 Administered Medications Medications (Trade) Dose Ordered Sig/Patty Route PRN Reason Start Time Stop Time Status Last Admin Dose Admin Senna/Docusate Sodium (Sangeeta-Colace) 1 tab BID PO 12/21/17 21:00 12/24/17 21:49 Acetaminophen/ Hydrocodone Bitart ([place] 10-325 Mg) 1 tab Q4H PRN PO pain 7-10 12/21/17 23:45 12/24/17 21:55 Lisinopril (Prinivil) 20 mg DAILY PO 12/22/17 09:00 12/25/17 08:34 Tamsulosin HCl (Flomax) 0.4 mg HS PO 12/21/17 23:45 12/24/17 21:49 Pravastatin Sodium (Pravachol) 80 mg HS PO 12/21/17 23:45 12/24/17 21:49 Metoprolol Succinate (Toprol Xl) 25 mg HS PO 12/22/17 00:30 12/22/17 23:09 Phenylephrine HCl 40 mg/Dextrose 500 ml @ 30 mls/hr TITRATE PRN IV Blood Pressure Management 12/23/17 12:15 12/23/17 10:54 Pantoprazole Sodium (Protonix Inj) 40 mg DAILY IVP 12/24/17 09:00 12/24/17 09:30 Morphine Sulfate (Morphine Inj) 2 mg Q2H PRN IV PAIN 1-6 12/23/17 19:45 12/24/17 10:21 Dexamethasone (Decadron) 4 mg Q12HR PO 12/24/17 21:00 12/25/17 08:35 Objective Remarks GENERAL: nad CARDIOVASCULAR: Regular rate and rhythm without murmurs. RESPIRATORY: Breath sounds equal bilaterally. No accessory muscle use. GASTROINTESTINAL: Abdomen soft, non-tender, nondistended. EXTREMITIES: No cyanosis, or edema. Assessment/Plan Problem List: (1) Adenocarcinoma of prostate ICD Codes: C61 - Malignant neoplasm of prostate Plan: --Await pathology from spinal surgery Hx/Workup: Patient was originally diagnosed several years ago and was treated with radiation treatments. He did not receive any adjuvant chemotherapy at the time of diagnosis. (2) Cervical spinal mass ICD Codes: G95.9 - Disease of spinal cord, unspecified Status: Acute Plan: -- Most recently we have been seeing him for a mass involving the C7 spine. -- An MRI showed that this extended bilaterally into the pedicles and vertebral body and inferiorly into the superior facet and pedicle of T1, causing a moderate amount of cord compression. -- Patient underwent C7 bilateral laminectomy with resection of the epidural tumor on 12/[address] Skinner -- On Decadron IV 4mg Q6H. Assessment Patient with history of adenocarcinoma of the prostate admitted with cord compression due to a mass on C7 Plan 1. C7 mass s/p bilateral laminectomy, resection of epidural tumor: - preliminary results indicative of Lymphoma - will follow up on final path - Will need port placement for systemic chemotherapy - Outpatient PET - f/u in clinic in 1-2 weeks El Casillas MD Dec 25, 2017 18:27
--- NOTE | 2017-12-25 18:58 | HHI.PR ---
Subjective Remarks Patient states that he was getting out of bed and twisted his lower back and is experiencing some pain now. This may account for the elevation of his blood pressure today. Pathology reports returned and we had a brief discussion about plasmacytoma. Objective Vitals Vital Signs Date Time Temp Pulse Resp B/P (MAP) Pulse Ox O2 Delivery O2 Flow Rate FiO2 12/25/17 16:00 98.2 98 18 178/99 (125) 95 12/25/17 12:00 98.1 100 18 168/97 (120) 97 12/25/17 08:00 97.3 100 18 201/91 (127) 98 Arterial Line 12/25/17 04:00 97.9 96 18 152/80 (104) 93 12/25/17 00:00 97.5 98 19 166/85 (112) 94 12/24/17 20:00 97.6 106 22 109/83 (92) 97 I/O 12/24/17 12/24/17 12/24/17 12/25/17 12/25/17 12/25/17 07:00 15:00 23:00 07:00 15:00 23:00 Intake Total 1062 ml 460 ml Output Total 900 ml 280 ml 1440 ml 1165 ml Balance 162 ml 180 ml -1440 ml -1165 ml Intake Oral 460 ml IV Total 1062 ml Output Urine Total 850 ml 250 ml 1400 ml 1100 ml Drainage Total 50 ml 30 ml 40 ml 65 ml # Bowel Movements 1 0 Result Diagram: 12/24/17 0527 12/24/17 05 Objective Remarks GENERAL: Obese SKIN: Warm and dry. HEAD: Normocephalic. EYES: No scleral icterus. No injection or drainage. NECK: Supple, trachea midline. No JVD or lymphadenopathy. CARDIOVASCULAR: Irregularly irregular, heart rate 108 RESPIRATORY: Breath sounds equal bilaterally. No accessory muscle use. GASTROINTESTINAL: Abdomen soft, non-tender, nondistended. EXTREMITIES: No cyanosis, or edema. NEUROLOGICAL: Awake, alert, and oriented x 3. Non-focal. 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 Further workup will be needed to determine treatment. Appreciate neurosurgery consult Appreciate oncology consult Atrial fibrillation with RVR Diagnosed 3 years ago, patient is not on anticoagulants Continue home dose of metoprolol XL 25 mg daily IV digoxin used as supplemental for rhythm stabilization Hypertension Resume home lisinopril DVT prophylaxis Lovenox starting this evening Chris Vargas MD Dec 25, 2017 18:58
[2017-12-25 20:00] VITALS: BP 169/100; PULSE 82; RESP 21; TEMP 98.1; O2SAT 94
[2017-12-25] MEDS: ACETAMINOPHEN/HYDROcodone 325 MG/10 MG TAB PO PRN (21:50)
[2017-12-25] MEDS: METOPROLOL SUCCINATE 25 MG EXTENDED RELEASE TAB PO SCH (21:51)
[2017-12-25] MEDS: TAMSULOSIN HCL 0.4 MG CAP PO SCH (21:52)
[2017-12-25] MEDS: ENOXAPARIN SODIUM 40 MG/0.4 ML SYRINGE SQ SCH (21:53)
[2017-12-25] MEDS: PRAVASTATIN SOD 80 MG TAB PO SCH (21:56)
[2017-12-26] VITALS: BP 116/73; PULSE 93; RESP 18; TEMP 97.4; O2SAT 93
[2017-12-26 04:00] VITALS: BP 125/75; PULSE 98; RESP 18; TEMP 97.8; O2SAT 94
[2017-12-26 08:00] VITALS: BP 139/92; PULSE 100; RESP 18; TEMP 97.7; O2SAT 96
[2017-12-26] MEDS: DEXAMETHASONE 4 MG TAB PO SCH ×2 (08:46→21:38)
[2017-12-26] MEDS: LISINOPRIL 20 MG TAB PO SCH (08:46)
[2017-12-26] MEDS: DOCUSATE SODIUM 50 MG/SENNA 8.6 MG TAB PO SCH ×2 (08:47→21:38)
[2017-12-26] MEDS: ACETAMINOPHEN/HYDROcodone 325 MG/10 MG TAB PO PRN ×3 (08:47→21:38)
[2017-12-26] MEDS: PANTOPRAZOLE SODIUM 40 MG VIAL IVP SCH (08:48)
[2017-12-26 12:00] VITALS: BP 126/82; PULSE 84; RESP 18; TEMP 98.2; O2SAT 96
--- NOTE | 2017-12-26 14:59 | HHI.PR ---
Subjective Remarks Patient is requesting to shower. He is requesting removal of his left antecubital IV Objective Vitals Vital Signs Date Time Temp Pulse Resp B/P (MAP) Pulse Ox O2 Delivery O2 Flow Rate FiO2 12/26/17 12:00 98.2 84 18 126/82 (97) 96 12/26/17 08:00 97.7 100 18 139/92 (108) 96 12/26/17 04:00 97.8 98 18 125/75 (92) 94 12/26/17 00:00 97.4 93 18 116/73 (87) 93 12/25/17 20:00 98.1 82 21 169/100 (123) 94 12/25/17 16:00 98.2 98 18 178/99 (125) 95 I/O 12/25/17 12/25/17 12/25/17 12/26/17 12/26/17 12/26/17 07:00 15:00 23:00 07:00 15:00 23:00 Intake Total 240 ml Output Total 1165 ml 400 ml Balance -1165 ml -160 ml Intake Oral 240 ml Output Urine Total 1100 ml 400 ml Drainage Total 65 ml # Voids 2 # Bowel Movements 0 0 Result Diagram: 12/24/1727 12/24/17526 Objective Remarks GENERAL: Obese SKIN: Warm and dry. HEAD: Normocephalic. EYES: No scleral icterus. No injection or drainage. NECK: Supple, trachea midline. No JVD or lymphadenopathy. CARDIOVASCULAR: Irregularly irregular, heart rate 108 RESPIRATORY: Breath sounds equal bilaterally. No accessory muscle use. GASTROINTESTINAL: Abdomen soft, non-tender, nondistended. EXTREMITIES: No cyanosis, or edema. NEUROLOGICAL: Awake, alert, and oriented x 3. Non-focal. A/P Problem List: (1) Cervical spinal mass ICD Code: G95.9 - Disease of spinal cord, unspecified Status: Acute Assessment and Plan 72-year-old male who presented with C7 mass that turned out to be a plasmacytoma on pathology report. C7 spinal mass with severe spinal stenosis Dr. 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 Further workup will be needed to determine treatment. Appreciate neurosurgery consult Appreciate oncology consult Atrial fibrillation with RVR Diagnosed 3 years ago, patient is not on anticoagulants Continue home dose of metoprolol XL 25 mg daily IV digoxin used as supplemental for rhythm stabilization Hypertension Resume home lisinopril DVT prophylaxis Chris Olson MD Dec 26, 2017 14:59
[2017-12-26 16:00] VITALS: BP 160/79; PULSE 98; RESP 18; TEMP 98.3; O2SAT 95
[2017-12-26] MEDS: ENOXAPARIN SODIUM 40 MG/0.4 ML SYRINGE SQ SCH (17:38)
--- NOTE | 2017-12-26 19:37 | HHI.NSPN ---
History Interval History Patient status post laminectomy. Frozen section compatible with lymphoma. Patient reports doing well and offers no complaints Exam Results Vital Signs Date Time Temp Pulse Resp B/P (MAP) Pulse Ox O2 Delivery O2 Flow Rate FiO2 12/26/17 16:00 98.3 98 18 160/79 (106) 95 12/24/17 12:00 Room Air 12/24/17 00:00 2 12/23/17 12:15 50 Intake and Output 12/26/17 12/26/17 12/26/17 07:59 15:59 23:59 Intake Total 240 ml Output Total 400 ml Balance -160 ml Physical Examination Patient is alert and awake. Sitting up in chair. [place] J collar Moves all extremities well Dressing dry and intact Medical Decision Making Impression and Plan Patient doing well postop. Reports being able to ambulate to the bathroom without problems. We will increase mobilization. May need oncology consult Dilip Raymundo MD Dec 26, 2017 19:37
[2017-12-26 20:00] VITALS: BP 157/102; PULSE 116; RESP 20; TEMP 97.9; O2SAT 96
[2017-12-26] MEDS: PRAVASTATIN SOD 80 MG TAB PO SCH (21:38)
[2017-12-26] MEDS: METOPROLOL SUCCINATE 25 MG EXTENDED RELEASE TAB PO SCH (21:38)
[2017-12-26] MEDS: TAMSULOSIN HCL 0.4 MG CAP PO SCH (21:38)
[2017-12-27] VITALS (7 sets, daily range): BP systolic 117–170; BP diastolic 65–103; PULSE 53–103; RESP 16–19; TEMP 97–99.1; O2SAT 93–96
[2017-12-27] MEDS: LISINOPRIL 20 MG TAB PO SCH (08:37)
[2017-12-27] MEDS: ACETAMINOPHEN/HYDROcodone 325 MG/5 MG TAB PO PRN ×3 (08:37→21:48)
[2017-12-27] MEDS: DEXAMETHASONE 4 MG TAB PO SCH ×2 (08:37→21:47)
[2017-12-27] MEDS: PANTOPRAZOLE SODIUM 40 MG VIAL IVP SCH (08:38)
[2017-12-27] MEDS: DOCUSATE SODIUM 50 MG/SENNA 8.6 MG TAB PO SCH ×2 (08:39→21:47)
[2017-12-27] MEDS ORDERED: cloNIDine HCL 0.1 MG TAB PO PRN (13:30)
--- NOTE | 2017-12-27 14:34 | HHI.NSPN ---
History Interval History Patient status post laminectomy. Frozen section compatible with lymphoma. Patient reports doing well and offers no complaints Exam Results Vital Signs Date Time Temp Pulse Resp B/P (MAP) Pulse Ox O2 Delivery O2 Flow Rate FiO2 12/27/17 12:00 98.1 99 18 150/88 (108) 95 12/24/17 12:00 Room Air 12/24/17 00:00 2 12/23/17 12:15 50 Physical Examination Patient is alert and awake. Ambulating about the room. In [place] J collar Moves all extremities well Dressing dry and intact Medical Decision Making Impression and Plan Patient doing well postop. Awaiting oncology recommendations Dilip Raymundo MD Dec 27, 2017 14:34
--- NOTE | 2017-12-27 14:55 | HHI.PR ---
Subjective Remarks Patient is requesting shower today. He has no complaints and is asking about when he might go home. Objective Vitals Vital Signs Date Time Temp Pulse Resp B/P (MAP) Pulse Ox O2 Delivery O2 Flow Rate FiO2 12/27/17 12:00 98.1 99 18 150/88 (108) 95 12/27/17 08:00 98.1 53 18 170/85 (113) 95 Manual Cuff/Auscultation 12/27/17 05:00 158/90 (112) 12/27/17 04:00 97.8 103 18 162/103 (122) 95 12/27/17 00:00 97.0 95 16 131/65 (87) 93 12/26/17 20:00 97.9 116 20 157/102 (120) 96 12/26/17 16:00 98.3 98 18 160/79 (106) 95 I/O 12/26/17 12/26/17 12/26/17 12/27/17 12/27/17 12/27/17 06:59 14:59 22:59 06:59 14:59 22:59 Intake Total 240 ml 120 ml Output Total 400 ml Balance -160 ml 120 ml Intake Oral 240 ml 120 ml Output Urine Total 400 ml # Voids 2 2 # Bowel Movements 0 Result Diagram: 12/24/1752612/24/17526 Objective Remarks GENERAL: Obese SKIN: Warm and dry. HEAD: Normocephalic. EYES: No scleral icterus. No injection or drainage. NECK: Supple, trachea midline. No JVD or lymphadenopathy. CARDIOVASCULAR: Irregularly irregular, heart rate 108 RESPIRATORY: Breath sounds equal bilaterally. No accessory muscle use. GASTROINTESTINAL: Abdomen soft, non-tender, nondistended. EXTREMITIES: No cyanosis, or edema. NEUROLOGICAL: Awake, alert, and oriented x 3. Non-focal. A/P Problem List: (1) Cervical spinal mass ICD Code: G95.9 - Disease of spinal cord, unspecified Status: Acute Assessment and Plan 72-year-old male who presented with C7 mass that turned out to be a plasmacytoma on pathology report. C7 spinal mass with severe spinal stenosis Dr. 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 Further workup will be needed to determine treatment. Appreciate neurosurgery consult Appreciate oncology consult Atrial fibrillation with RVR Diagnosed 3 years ago, patient is not on anticoagulants Continue home dose of metoprolol XL 25 mg daily IV digoxin used as supplemental for rhythm stabilization Hypertension Resume home lisinopril DVT prophylaxis Lovenox Discharge planning Awaiting clearance from neurosurgery and oncology Chris Vargas MD Dec 27, 2017 14:54
[2017-12-27] MEDS: ENOXAPARIN SODIUM 40 MG/0.4 ML SYRINGE SQ SCH (17:22)
[2017-12-27] MEDS: PRAVASTATIN SOD 80 MG TAB PO SCH (21:47)
[2017-12-27] MEDS: METOPROLOL SUCCINATE 25 MG EXTENDED RELEASE TAB PO SCH (21:47)
[2017-12-27] MEDS: TAMSULOSIN HCL 0.4 MG CAP PO SCH (21:47)
[2017-12-28 00:10] VITALS: BP 125/70; PULSE 89; RESP 18; TEMP 98; O2SAT 96
[2017-12-28 04:00] VITALS: BP 119/67; PULSE 80; RESP 21; TEMP 97.3; O2SAT 98
[2017-12-28] MEDS: ACETAMINOPHEN/HYDROcodone 325 MG/5 MG TAB PO PRN (05:58)
[2017-12-28 08:00] VITALS: BP 144/92; PULSE 76; RESP 20; TEMP 98; O2SAT 93
[2017-12-28] MEDS: PANTOPRAZOLE SODIUM 40 MG VIAL IVP SCH (08:28)
[2017-12-28] MEDS: DEXAMETHASONE 4 MG TAB PO SCH (08:29)
[2017-12-28] MEDS: LISINOPRIL 20 MG TAB PO SCH (08:29)
[2017-12-28] MEDS: DOCUSATE SODIUM 50 MG/SENNA 8.6 MG TAB PO SCH (08:29)
--- NOTE | 2017-12-28 11:48 | HHI.FF ---
Face to Face Verification Diagnosis: (1) Cervical spinal mass Physical Therapy Order: Evaluate and Treat Occupational Therapy Order: Evaluate and Treat Home Health Nursing Order: Medical education Wound care and dressing changes I have seen patient Mauri Falk on 12/28/17. My clinical findings support the need for the requested home health care services because: Ltd mobility - disease progression Limited ability to care for self I certify that my clinical findings support that this patient is homebound because: Post-op weakness Unsafe to leave home unassisted Unable to use public transportation Chris Vargas MD Dec 28, 2017 11:48
[2017-12-28 11:52] VITALS: BP 123/87; PULSE 100; RESP 20; TEMP 97.9; O2SAT 96
--- NOTE | 2017-12-28 13:42 | HHI.NSPN ---
(Olivia Malagon) Note Status Status: Progress Note (Olivia Malagon) Interval History Interval History Mr. Falk s/p C7 bilateral laminectomy, resection of epidural tumor Dec 23, 2017 for C7 mass with spinal cord compression. His Frozen section consistent with lymphoma 12/24: doing well, surgical pain controlled. reports upper extremities symptoms with improvement today. 12/28: Doing well, sitting up in chair, reports weakness and paresthesias in the upper extremities slowly improving. Surgical pain controlled. (Olivia Malagon) Labs, Micro, & Vital Signs Results Date Time Temp Pulse Resp B/P (MAP) Pulse Ox O2 Delivery O2 Flow Rate FiO2 12/28/17 11:52 97.9 100 20 123/87 (99) 96 12/28/17 08:00 98.0 76 20 144/92 (109) 93 12/28/17 07:06 19 12/28/17 04:00 97.3 80 21 119/67 (84) 98 12/28/17 00:10 98.0 89 18 125/70 (88) 96 12/27/17 20:30 99.1 94 19 129/68 (88) 95 12/27/17 16:00 98.4 94 18 117/75 (89) 96 Constitutional Vital Signs Date Time Temp Pulse Resp B/P (MAP) Pulse Ox O2 Delivery O2 Flow Rate FiO2 12/28/17 11:52 97.9 100 20 123/87 (99) 96 12/28/17 08:00 98.0 76 20 144/92 (109) 93 12/28/17 07:06 19 12/28/17 04:00 97.3 80 21 119/67 (84) 98 12/28/17 00:10 98.0 89 18 125/70 (88) 96 12/27/17 20:30 99.1 94 19 129/68 (88) 95 12/27/17 16:00 98.4 94 18 117/75 (89) 96 (Olivia Malagon) Review of Systems Constitutional: DENIES: Fever, Chills Cardiovascular: DENIES: Chest pain Musculoskeletal: COMPLAINS OF: Stiffness Neurologic: COMPLAINS OF: Localized weakness, Paresthesias (Olivia Malagon) Physical Exam Mr. Lai is alert, awake and oriented to time, place and person. Speech is fluent. Cranial nerve examination: pupils to be equal, round and reactive to light. Extra-ocular movements are intact. Facial motor are normal and symmetrical. Neck immobilized by [place] collar Wound with Optifoam dressing, clean and dry. 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 (Olivia Malagon) Medications Current Medications Current Medications Medications (Trade) Dose Ordered Sig/Patty Route PRN Reason Start Time Stop Time Status Last Admin Dose Admin Acetaminophen (Tylenol) 650 mg Q4H PRN PO TEMP > 100.4 12/21/17 18:30 Ondansetron HCl (Zofran Inj) 4 mg Q6H PRN IVP NAUSEA OR VOMITING 12/21/17 18:30 Naloxone HCl (Narcan Inj) 0.4 mg UNSCH PRN IV PUSH SEE LABEL COMMENTS 12/21/17 18:30 Senna/Docusate Sodium (Sangeeta-Colace) 1 tab BID PO 12/21/17 21:00 12/27/17 21:47 Magnesium Hydroxide (Milk Of Magnesia Liq) 30 ml Q12H PRN PO Mild constipation 12/21/17 18:30 Sennosides (Senokot) 17.2 mg Q12H PRN PO Moderate constipation 12/21/17 18:30 Bisacodyl (Dulcolax Supp) 10 mg DAILY PRN RECTAL SEVERE CONSITIPATION 12/21/17 18:30 Lactulose (Lactulose Liq) 30 ml DAILY PRN PO SEVERE CONSITIPATION 12/21/17 18:30 Acetaminophen/ Hydrocodone Bitart ([place] 5-325 Mg) 1 tab Q4H PRN PO pain 3-6 12/21/17 23:45 12/28/17 05:58 Acetaminophen/ Hydrocodone Bitart ([place] 10-325 Mg) 1 tab Q4H PRN PO pain 7-10 12/21/17 23:45 12/26/17 21:38 Lisinopril (Prinivil) 20 mg DAILY PO 12/22/17 09:00 3/26/18 08:29 Tamsulosin HCl (Flomax) 0.4 mg HS PO 12/21/17 23:45 12/27/17 21:47 Pravastatin Sodium (Pravachol) 80 mg HS PO 12/21/17 23:45 12/27/17 21:47 Metoprolol Succinate (Toprol Xl) 25 mg HS PO 12/22/17 00:30 12/27/17 21:47 Propofol 100 ml @ 3.81 mls/hr TITRATE PRN IV SEDATION 12/23/17 12:15 Phenylephrine HCl 40 mg/Dextrose 500 ml @ 30 mls/hr TITRATE PRN IV Blood Pressure Management 12/23/17 12:15 12/23/17 10:54 Terbutaline Sulfate (Brethine Inj) 1 mg UNSCH PRN SQ FOR EXTRAVASATION PROTOCOL 12/23/17 12:15 Pantoprazole Sodium (Protonix Inj) 40 mg DAILY IVP 12/24/17 09:00 12/26/17 08:48 Morphine Sulfate (Morphine Inj) 2 mg Q2H PRN IV PAIN 1-6 12/23/17 19:45 12/24/17 10:21 Morphine Sulfate (Morphine Inj) 4 mg Q2H PRN IV PUSH PAIN SCALE 7 TO 10 12/23/17 19:30 Acetaminophen (Tylenol) 650 mg Q4H PRN PO TEMPERATURE > 101.5 F 12/23/17 19:30 Dexamethasone (Decadron) 4 mg Q12HR PO 12/24/17 21:00 12/28/17 08:29 Enoxaparin Sodium (Lovenox Inj) 40 mg Q24H SQ 12/25/17 19:00 12/27/17 17:22 Clonidine (Catapres) 0.1 mg Q8HR PRN PO systolic BP > 165 12/27/17 13:30 (Olivia Malagon) Medical Decision Making MDM Remarks Mr. Falk s/p C7 bilateral laminectomy, resection of epidural tumor Dec 23, 2017 for C7 mass with spinal cord compression. 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 (Olivia Maalgon) Plan Plan Remarks cont [place] collar at all times, cont therapy, rehab efforts f/u medical and radiation oncology for further treatment and management f/u Dr. Skinner office in 1 week for wound check cleared for discharge from neurosurgical standpoint (Olivia Malagon) Attending Statement The exam, history, and the medical decision-making described in the above note were completed with the assistance of the mid-level provider. I reviewed and agree with the findings presented. I attest that I had a [id number] encounter with the patient on the same day, and personally performed and documented my assessment and findings in the medical record. (Bert Skinner MD) Olivia Malagon Dec 28, 2017 13:42 Bert Skinner MD Dec 28, 2017 19:33
[2017-12-28 16:11] VITALS: BP 132/74; PULSE 74; RESP 20; TEMP 98; O2SAT 93
--- NOTE | 2017-12-28 16:20 | HHI.DS ---
Discharge Summary Admission Date Dec 21, 2017 at 17:37 Discharge Date: Dec 28, 2017 Admitting Diagnosis cervical spine mass (1) Cervical spinal mass ICD Code: G95.9 - Disease of spinal cord, unspecified Status: Acute Procedures Neurosurgical removal of C7 obstructive mass Brief History - From Admission Mr. Falk is a very pleasant 72-year-old male who was sent to the emergency department by his oncologist Dr. Hicks for evaluation of a mass to his cervical spine that was found on an outpatient MRI. Patient is admitted to [facility] for general medical management of his other chronic medical conditions with neurosurgical consultation. The patient is seen in his hospital room. He states that he first developed his symptoms in September and it started with his left side and weakness and inability to close his left middle finger. The symptoms progressed into his left shoulder feeling painful. He was treated by his primary care physician's office for arthritis in his neck as was found on an x-ray of the cervical spine. He had physical therapy but his symptoms never got better despite physical therapy and pain medication. His symptoms eventually progressed to occurring bilaterally. He had an outpatient MRI and was referred to an oncologist for further evaluation and treatment. He states he had his first appointment with Dr. Hicks today and was sent to the ER by him after he reviewed his cervical spine MRI Currently he is reporting pain at a level 3 out of 10 and reports adequate pain relief with medication given to at the hospital. He is awaiting cervical collar placement at the time of my visit. He denies any fever, chills, chest pain, shortness of breath, nausea, vomiting, diarrhea, black or bloody stools. Cervical spine CT shows aggressive bony destruction of C7 extending bilaterally into the pedicles and vertebral body and also extending inferiorly into the superior facet and pedicle of T1. Soft tissue mass extending into the spinal canal with severe canal stenosis at C6-7. Moderate degenerative change noted in remainder of the cervical spine. Findings are suspicious for neoplasm, likely metastatic disease. The patient has been seen and evaluated by Dr. Skinner of neurosurgery. The patient states that Dr. Skinner told him he would do surgery and also refer him to radiation oncology. Dr. Skinner has consulted radiation oncology and we are leaving the patient n.p.o. for the time being until we have further clarification. CBC/BMP: 12/24/17 0527 12/24/17 0527 PE at Discharge GENERAL: Obese SKIN: Warm and dry. HEAD: Normocephalic. EYES: No scleral icterus. No injection or drainage. NECK: Supple, trachea midline. No JVD or lymphadenopathy. CARDIOVASCULAR: Irregularly irregular, heart rate 108 RESPIRATORY: Breath sounds equal bilaterally. No accessory muscle use. GASTROINTESTINAL: Abdomen soft, non-tender, nondistended. EXTREMITIES: No cyanosis, or edema. NEUROLOGICAL: Awake, alert, and oriented x 3. Non-focal. Hospital Course 72-year-old male who presented after outpatient treatment for unidentified C7 mass that appeared to be destructive in nature according to CT report. The mass was focused in the C7 bone and surrounding soft tissue. He underwent surgical removal 5 days ago. He tolerated the procedure well and rested through the weekend. Pathology reported that the mass is a plasmacytoma. Neurosurgery has cleared him for discharge. We are awaiting oncology follow-up , however, patient has stated he would like to go home immediately. I recommended follow-up in the next week with his primary care doctor, oncology, neurosurgery. Home healthcare has been arranged including occupational therapy and nursing assessments for wound care. Pt Condition on Discharge: Good Discharge Disposition: Disch w/ Home Health Serv Discharge Time: <= 30 minutes Discharge Instructions DIET: Follow Instructions for: As Tolerated, No Restrictions Activities you can perform: Weight Bearing as Adelaida Other Activity Instructions: Neurosurgery recommends neck brace at all times until cleared after follow up visit. Chris Vargas MD Dec 28, 2017 16:20
== END 2017-12-28 16:19 | disposition home health service (06) | DRG 821 ==
LOC: NED 14:55 → NEDA 17:37 → NEDH 21:37 → N05B 22:19 → N03B 12-23 17:20 → HPAC 12-23 22:43 → N05B 12-24 12:32
PROVIDERS: ADMIT Family Medicine; ATTEND Family Medicine
PROC: 00NW0ZZ Release Cervical Spinal Cord, Open Approach (ICD-10-PCS; 2017-12-23)
PROC: 0PB30ZZ Excision of Cervical Vertebra, Open Approach (ICD-10-PCS; 2017-12-23)
PROC: 4A11X4G Monitoring of Peripheral Nervous Electrical Activity, Intraoperative, External Approach (ICD-10-PCS; 2017-12-23)
PROC: 0PB30ZX Excision of Cervical Vertebra, Open Approach, Diagnostic (ICD-10-PCS; principal; 2017-12-23 13:02)
DX: C90.30 Solitary plasmacytoma not having achieved remission (principal); G95.29 Other cord compression; I48.91 Unspecified atrial fibrillation; M48.02 Spinal stenosis, cervical region; I65.29 Occlusion and stenosis of unspecified carotid artery; I10 Essential (primary) hypertension; M48.9 Spondylopathy, unspecified; E78.5 Hyperlipidemia, unspecified; R53.1 Weakness; M19.90 Unspecified osteoarthritis, unspecified site; R26.2 Difficulty in walking, not elsewhere classified; M25.512 Pain in left shoulder; Z85.46 Personal history of malignant neoplasm of prostate; Z92.3 Personal history of irradiation; Z87.891 Personal history of nicotine dependence; Z80.0 Family history of malignant neoplasm of digestive organs; Z23 Encounter for immunization
CPT/HCPCS: 36430; 70498; 71046; 71260; 72020; 72125; 74177; 76000; 80048; 80053; 82805; 83036; 83615; 83735; 84100; 84153; 84154; 84439; 84443; 85025; 85027; 85610; 85730; 86850; 86900; 86901; 86920; 88184; 88185; 88230; 88264; 88280; 88307; 88311; 88331; 88377; 90732; 93005; 94150; 99222; C1713; C9113; J0690; J1100; J1160; J1580; J1650; J2250; J2270; J2370; J2405; J3010; J3370; J3480; J7030; J7040; J7050; J7060; J7120; J8540; L0120; L0150; L0172; P9016; Q9963; Q9967

== ENCOUNTER 2018-02-12 08:43 | Day surgery (SDC) | payer OTHER ==
[~2018-02-12] VITALS: Ht 165.1 cm; Wt 122.7 kg
[~2018-02-12 08:43] MED LIST: ASPI1TAB57 PO; DEXA4TAB PO; HYDR-3516 PO; IBUP1TAB7 PO; LISI-515 PO; METO1TAB42 PO; SIMV40TA PO; TAMS0.4C4
[2018-02-12] MEDS ORDERED: LIDOCAINE HCL 1% 10 ML VIAL OTHER ONE (08:44)
[2018-02-12] MEDS ORDERED: SODIUM CHLOR 0.9% 1000 ML IV SCH (09:00)
[2018-02-12 09:05] VITALS: BP 140/93; PULSE 70; RESP 18; TEMP 97.4; O2SAT 95
[2018-02-12] MEDS ORDERED: CALC1TAB87 PO (09:38)
[2018-02-12 09:49] LABS: AUTOMATED NEUTROPHIL # 3.4 TH/MM3 (1.8-7.7); BASOPHIL % 0.9 % (0.0-2.0); EOSINOPHIL # 0.3 TH/MM3 (0-0.4); EOSINOPHIL % 4.8 % (0.0-4.0); HEMATOCRIT 38.7 % (39.0-51.0); HEMOGLOBIN 13.3 GM/DL (13.0-17.0); LYMPH % 21.8 % (9.0-44.0); LYMPHOCYTE # 1.2 TH/MM3 (1.0-4.8); MEAN CELL VOLUME 93.2 FL (80.0-100.0); MEAN CORPUSCULAR HEMOGLOBIN 32.1 PG (27.0-34.0); MEAN CORPUSCULAR HGB CONC 34.5 % (32.0-36.0); MEAN PLATELET VOLUME 7.1 FL (7.0-11.0); MONO % 8.3 % (0.0-8.0); MONOCYTE # 0.4 TH/MM3 (0-0.9); NEUT % 64.2 % (16.0-70.0); PLATELET COUNT 143 TH/MM3 (150-450); RED BLOOD COUNT 4.15 MIL/MM3 (4.50-5.90); RED CELL DISTRIBUTION WIDTH 16.1 % (11.6-17.2); WHITE BLOOD COUNT 5.4 TH/MM3 (4.0-11.0)
[2018-02-12] MEDS ORDERED: MIDAZOLAM HCL 2 MG/2 ML VIAL ONE (10:34)
[2018-02-12 11:05] VITALS: BP 118/63; PULSE 83; RESP 20; TEMP 97.6; O2SAT 93
[2018-02-12 11:20] VITALS: BP 122/75; PULSE 84; RESP 21; O2SAT 95
--- NOTE | 2018-02-12 11:29 | RADRPT ---
EXAM DATE/TIME: 02/12/2018 10:46 [place] COMPARISON: No previous studies available for comparison. INDICATIONS : Multiple myeloma. SEDATION TIME: 15 minutes BIOPSY SITE: Right iliac MEDICATION(S): 1.) 2 mg midazolam (Versed) IV 2.) 100 mcg fentanyl (Sublimaze) IV DEVICE(S): 1.) 11 gauge Bone marrow biopsy needle MEDICAL HISTORY : Carcinoma, prostate. Hypertension. Cardiovascular disease. multiple myeloma SURGICAL HISTORY : None. ENCOUNTER: Initial ACUITY: 1 day PAIN SCORE: 0/10 LOCATION: Right iliac A total of one core specimen(s) were obtained and sent to the laboratory for pathologic evaluation. PROCEDURE: 1. CT guided pelvic biopsy. 2. Conscious sedation with continuous EKG and oximetry monitoring. 3. EKG and oximetry remained stable throughout the procedure. Prior to the procedure informed consent was obtained. Any appropriate prior imaging studies were rev iewed. Using automated exposure control and adjustment of the mA and/or kV according to patient size , radiation dose was kept as low as reasonably achievable to obtain optimal diagnostic quality images . DICOM format image data is available electronically for review and comparison. The site was prepped in a sterile fashion. Full sterile technique was used, including cap, mask, shane rile gloves and gown and a large sterile sheet. Hand hygiene and 2% chlorhexidine and/or betadine/al cohol prep was utilized per protocol for cutaneous antisepsis. The skin and subcutaneous tissues wer e infiltrated with local anesthetic solution. With CT guidance the previously identified target was localized. Biopsy was performed using the presc ribed needle as above. Following biopsy marrow aspiration was performed with repeat puncture. Adequa te hemostasis was obtained with compression at the puncture site. Follow-up CT scan reveals no hemorrhage. Conscious sedation was performed with the prescribed dosages and duration as above in the presence of an independent trained radiology nurse to assist in the monitoring of the patient. EKG and oximetry remained stable throughout the procedure. The patient tolerated the procedure well and there were no complications. The patient was sent to Radiology Outpatient Unit in stable condition. CONCLUSION: 1. Uncomplicated CT guided bone marrow aspirate. 2. Uncomplicated CT guided bone marrow biopsy. Gennrao Galindo MD FACR on February 12, 2018 at 11:27 Board Certified Radiologist. This report was verified electronically.
[2018-02-12 11:50] VITALS: BP 119/77; PULSE 93; RESP 19; O2SAT 92
[2018-02-12 12:20] VITALS: BP 122/63; PULSE 94; RESP 18; O2SAT 95
== END 2018-02-12 13:00 | disposition home or self-care (01) ==
LOC: HRAD 08:43 → HRIP 08:46 → HRAD 13:00
PROVIDERS: ATTEND Internal Medicine
DX: C90.00 Multiple myeloma not having achieved remission (principal); I25.10 Atherosclerotic heart disease of native coronary artery without angina pectoris; I10 Essential (primary) hypertension; Z85.46 Personal history of malignant neoplasm of prostate
CPT/HCPCS: 38221; 77012; 85025; 85097; 88184; 88185; 88237; 88264; 88280; 88305; 88311; 88313; 99152; C1830; J2250; J3010; J7030; 88341

== ENCOUNTER 2018-02-25 07:41 | Day surgery (SDC) | payer OTHER ==
[~2018-02-25] VITALS: Ht 165.1 cm; Wt 122.7 kg
[~2018-02-25 07:41] MED LIST changes: -ASPI1TAB57 PO; +CALC1TAB87 PO; -DEXA4TAB PO; -HYDR-3516 PO; -IBUP1TAB7 PO
[2018-02-25 08:35] VITALS: BP 111/70; PULSE 90; RESP 18; TEMP 97.7; O2SAT 94
[2018-02-25] MEDS ORDERED: SODIUM CHLOR 0.9% 1000 ML INJ 1,000 ML IV SCH (09:00)
[2018-02-25 10:49] LABS: INTERNATIONAL NORMALIZED RATIO 1.1 RATIO; PROTHROMBIN TIME - PATIENT 11.4 SEC (9.8-11.6)
[2018-02-25] MEDS ORDERED: MIDAZOLAM HCL 5 MG/5 ML VIAL ONE (11:07)
[2018-02-25] MEDS ORDERED: fentaNYL CITRATE 250 MCG/5 ML AMP ONE (11:08)
--- NOTE | 2018-02-25 12:18 | PD.RAD ---
Post CT Procedure Prog Note Pre Procedure Diagnosis: (1) Mass of right lung Post Procedure Diagnosis: (1) Mass of right lung Procedure Date: February 25, 2018 Supervising Radiologist: Ruddy Chu Anesthesia: Local, Conscious Sedation Plan of Activity Patient to Unit: [facility]U Patient Condition: Good Additional Comments: Patient scheduled for right lung biopsy. Area to be biopsied is significantly smaller and inaccessible because of overlying rib. Biopsied cancelled. See PACS Report for procedural detail/treatment Ruddy Chu MD February 25, 2018 12:18
[2018-02-25 12:30] VITALS: BP 114/51; PULSE 82; RESP 18; TEMP 97.7; O2SAT 92
[2018-02-25 12:45] VITALS: BP 125/87; PULSE 70; RESP 18; O2SAT 92
[2018-02-25 13:15] VITALS: BP 126/78; PULSE 96; RESP 18; O2SAT 91
[2018-02-25 13:45] VITALS: BP 121/83; PULSE 92; RESP 18; O2SAT 92
--- NOTE | 2018-02-25 14:51 | RADRPT ---
EXAM DATE: 02/25/2018 12:52 PM EDT AGE/SEX: 73 years / Male INDICATIONS: Right lower lung mass. CLINICAL DATA: This is the patient's initial encounter. Patient reports that signs and symptoms have been present for 1 day and indicates a pain score of 0/10. MEDICAL/SURGICAL HISTORY: Carcinoma, prostatic. Multiple myeloma. None. RADIATION DOSE: 5.20 CTDI (mGy) COMPARISON: No prior [place] exams available for comparison. TECHNIQUE: Multiple contiguous axial images were obtained through the chest without contrast. Image s were obtained in suspended respiration using multiple row detector helical technique. Using automa minerva exposure control and adjustment of the mA and/or kV according to patient size, radiation dose was kept as low as reasonably achievable to obtain optimal diagnostic quality images. FINDINGS: CT of the thorax were performed prior to scheduled biopsy to evaluate hypermetabolic lesions in both lung bases. A hypermetabolic infiltrate-like process in the left base has completely resolved. The right basilar infiltrative process has almost completely resolved with a small residual pleural-based density. The patient was placed prone for an attempted biopsy. Pleural-based density could not be accessed due to overlying rib. Biopsy was aborted at this time. CONCLUSION: 1. Near-total resolution of bibasilar hypermetabolic infiltrative process. 2. Small residual pleural-based density in the right base could not be accessed. 3. Follow-up CT scan of thorax is recommended in 3 months. Electronically signed by: Ruddy Chu MD 02/25/2018 2:50 PM EDT
== END 2018-02-25 14:32 | disposition home or self-care (01) ==
LOC: HRAD 07:41 → HRIP 07:42 → HRAD 14:32
PROVIDERS: ATTEND Internal Medicine
DX: R91.8 Other nonspecific abnormal finding of lung field (principal); Z85.46 Personal history of malignant neoplasm of prostate; Z85.79 Personal history of other malignant neoplasms of lymphoid, hematopoietic and related tissues; Z79.899 Other long term (current) drug therapy
CPT/HCPCS: 32405; 71250; 85610; 85730; 99152; 99153; J2250; J3010